=== PATIENT | female | born 1940 | race Caucasian/White ===

== ENCOUNTER → 2018-05-15 08:21 | Outpatient (CLI) | payer MEDICARE, OTHER, SELFPAY ==
--- NOTE | 2018-05-15 08:26 | DI.MG.S_ITS ---
BILATERAL DIGITAL SCREENING MAMMOGRAM 3D/2D WITH CAD: 05/15/2018 CLINICAL: Routine screening. Family history of breast cancer. Comparison is made to exams dated: 12/31/2016 mammogram, 12/21/2015 mammogram, and 12/19/2014 mammogram - [facility]. The tissue of both breasts is heterogeneously dense. This may lower the sensitivity of mammography. Current study was also evaluated with a Computer Aided Detection (CAD) system. No significant masses, calcifications, or other findings are seen in either breast. There has been no significant interval change. IMPRESSION: NEGATIVE There is no mammographic evidence of malignancy. A 1 year screening mammogram is recommended. This exam was interpreted at Station ID: [id number]. NOTE: For mammograms, a report in lay terms will be sent to the patient. Approximately 15% of breast malignancies will not be visualized mammographically. In the management of a palpable breast mass, a negative mammogram must not discourage biopsy of a clinically suspicious lesion. Electronically Signed By: Pedro richards/linda:05/17/2018 09:15:07 letter sent: Normal Exam ACR BI-RADS Category 1: Negative 3341F
== END ==
PROVIDERS: PCP Family Medicine; Visit Provider Family Medicine
DX: Z12.31 Encounter for screening mammogram for malignant neoplasm of breast (principal); Z80.3 Family history of malignant neoplasm of breast
CPT/HCPCS: 77063; 77067

== ENCOUNTER → 2018-05-25 13:41 | Outpatient (CLI) | payer MEDICARE, OTHER, SELFPAY | PROVIDERS: PCP Family Medicine; Visit Provider Family Medicine | DX: M85.88 Other specified disorders of bone density and structure, other site (principal); Z78.0 Asymptomatic menopausal state | CPT/HCPCS: 77080 ==

== ENCOUNTER → 2018-06-16 10:53 | Outpatient (CLI) | payer MEDICARE, OTHER, SELFPAY ==
[2018-06-16 12:10] LABS: Calcium 9.2 mg/dL (8.4-10.2)
[2018-06-16 12:54] LABS: Vitamin D 25 Hydroxy (D3) 12.9 ng/mL (30.0-100.0)
== END ==
PROVIDERS: PCP Family Medicine; Visit Provider Family Medicine
DX: M85.80 Other specified disorders of bone density and structure, unspecified site (principal)
CPT/HCPCS: 36415; 82306; 82310

== ENCOUNTER 2018-08-27 07:04 | Day surgery (SDC) | payer MEDICARE, OTHER, SELFPAY ==
[2018-08-27] VITALS (8 sets, daily range): BP systolic 108–133; BP diastolic 57–73; PULSE 57–72; RESP 12–17; TEMP 36.2–36.4; O2SAT 95–100; BMI 23.9
--- NOTE | 2018-08-27 | PATH_ITS ---
[facility] Accession Number: [id number] . 01 Material submitted: . PART A: COLON POLYP BIOPSY AT 20CM PART B: CECAL POLYP BIOPSY X4 . 02 Diagnosis: A. Colon, Biopsy at 20 cm Polyp, Biopsy: Hyperplastic polyp. . B. Cecum, Polyp x4, Biopsy: Tubular adenoma in five of six fragments. MRV/08/30/2018 . 02 Electronically signed: . Lakshmi Peñaloza MD, Pathologist NPI- [id number] . 01 Gross description: . Part A: COLON POLYP BIOPSY AT 20CM: Received in formalin are 2 fragment(s) of degroot, soft tissue measuring 0.2 x 0.2 x 0.2 cm to 0.4 x 0.2 x 0.2 cm which is entirely submitted and submitted entirely in 1 cassette(s) Part B: CECAL POLYP BIOPSY X4: Received in formalin are multiple fragment(s) of degroot, soft tissue measuring 0.1 x 0.1 x 0.1 cm to 0.3 x 0.2 x 0.2 cm which is entirely submitted and submitted entirely in 1 cassette(s) /DMC /DMC . 02 Pathologist provided ICD-10: D12.0 . 02 CPT . 670866, 456703 Performed at: 01 [facility] [address], [place], [place] [id number] MD Pedro Brito MD Phone: [phone] Performed at: 02 [facility] [address] , [place], [place] [id number] MD Lakshmi Peñaloza MD Phone: [phone]
[2018-08-27] MEDS: SODIUM CHLORIDE 0.9% 1,000 ML 100 ML IV (08:23)
--- NOTE | 2018-08-27 09:29 | PM.HP.1 ---
History of Present Illness Date Patient Seen: 08/27/18 Time Patient Seen: 09:30 Chief complaint: colonoscopy 70120 Narrative: The patient is a woman here for screening colonoscopy. Her son had colon cancer. Her last colonoscopy was about 5 years ago. Patient History Medical History Rosacea (Chronic ~1999) Asthma (Chronic ~1944) Hypertension (Chronic ~2001) Seasonal allergies (Chronic ~1944) Surgical History Anesthesia (Resolved) History of section (Resolved ~1960) History of section (Resolved ~1965) Family History Father No problems noted. Mother No problems noted. Grandfather No problems noted. Grandmother No problems noted. Social History marital status: number of children: 2 household members: spouse lives independently: Yes caregiver/support person: No housing: house Smoking Status: Never smoker second hand exposure: No alcohol intake: current substance use type: does not use Family & Social History Family History Father No problems noted. Mother No problems noted. Grandfather No problems noted. Grandmother No problems noted. Social History: household members spouse lives independently Yes caregiver/support person No Tobacco & Substance use: Smoking Status Never smoker alcohol intake current Meds Home Medications Medication Instructions Recorded Confirmed Type albuterol sulfate HFA 90 1 puff INHALATION Q6H PRN 01/22/18 08/27/18 History mcg/actuation aerosol inhaler amlodipine 10 mg tablet 10 mg PO DAILY 01/22/18 08/27/18 History aspirin 81 mg tablet,delayed 81 mg PO DAILY 01/22/18 08/27/18 History release atenolol 50 mg tablet 50 mg PO DAILY 01/22/18 08/27/18 History atorvastatin 10 mg tablet 10 mg PO DAILY 01/22/18 08/27/18 History azelaic acid 15 % topical gel 1 applictn TOP BID 01/22/18 08/27/18 History epinephrine 0.15 mg/0.15 mL SUBCUT each 01/22/18 05/14/18 History auto-injector (for 33 to 66 lb patients) hydrochlorothiazide 25 mg tablet 25 mg PO DAILY 01/22/18 08/27/18 History lisinopril 40 mg tablet 40 mg PO DAILY 01/22/18 08/27/18 History cholecalciferol (vitamin D3) 1,000 unit PO DAILY 08/27/18 08/27/18 History [Vitamin D3] Allergies Allergy/AdvReac Type Severity Reaction Status Date / Time bee venom protein (honey bee) Allergy Verified 08/27/18 08:00 hornet venom Allergy Verified 08/27/18 08:00 shellfish derived Allergy Verified 08/27/18 08:00 Review of Systems Review of Systems All systems reviewed & are unremarkable except as noted in HPI and below Cardiovascular Comments: Hypertension Respiratory Comments: Asthma. Uses inhalers. Exam Vital Signs (past 8 hours): - 08/27/18 08:06 Temperature 97.2 F L Pulse Rate 72 Respiratory Rate 15 Blood Pressure 133/64 Pulse Oximetry 99 Oxygen Delivery Method Room Air Narrative Exam Narrative: Operative no apparent distress. Lungs are clear to auscultation rales or rhonchi. Heart regular rate and rhythm no murmur gallop. Abdomen is mildly protuberant soft nontender without mass. Patient alert and oriented x3. Assessment & Plan Assessment & Plan narrative: Patient here for screening colonoscopy. I have discussed the procedure and the rationale with the patient including risks of bleeding, perforation which would necessitate a major operation, failure to find remove all lesions and the potential to tattoo. They appeared to understand and wished to proceed.
--- NOTE | 2018-08-27 09:33 | P.OP.PRE_ITS ---
Pre-operative Note Interval Note History & Physical reviewed/Exam performed by Physician: Yes Changes to H&P: No H&P completed within 30 days and has changed as indicated here:: Will give beta- ulisses if indicated. ASA Class (for procedural sedation): II
[2018-08-27] MEDS: fentaNYL 250 MCG/5 ML INJ IV (09:39)
[2018-08-27] MEDS: MIDAZOLAM 5 MG/5 ML VIAL IV (09:39)
--- NOTE | 2018-08-27 10:10 | PM.OP.ENDO ---
Operative Date/Time/Diagnoses Date of procedure: 08/27/18 Time of procedure: 10:10 Pre-op diagnosis: Screening due to family history. Last exam about 5 years ago Post-op diagnosis: same (Amos diverticulosis. Multiple small polyps) Procedure & Clinicians Study performed: Colonoscopy with cold biopsy Same procedure as scheduled: Yes Indications: Screening due to family history Surgeon: Terence Martinez Procedure Notes SCOAP/Timeout: Performed Procedure in detail: The patient was placed in the left lateral decubitus position and underwent IV sedation directed by the surgeon consisting of fentanyl and Versed. Digital exam was unremarkable. The scope was inserted and advanced through the rectum into the sigmoid, descending, transverse, and ascending colon. Two small polyps were removed at 20 cm from the anal verge on the way in. Diverticulosis was noted throughout these areas and was also noted in the cecum. The cecum was reached by applying pressure to the abdominal wall.. The cecum was reached identified by the ileocecal valve and the appendiceal opening. There was a polyp within the cecum which was biopsied and removed. Three additional polyps were identified in the ascending colon which were biopsied and removed. All were small under cm The scope was gradually brought out. The scope ultimately was retroflexed in the rectum. The appearance was remarkable for internal hemorrhoids without ulceration.. The scope was removed and the patient tolerated the procedure well. Prep was good. Scope withdrawal time: 14 min Sedation minutes: 33 Findings: diverticulosis (Throughout the colon), internal hemorrhoids and polyp (Multiple) Specimen(s): other (Polyps) Complications: none Recommendations: Colonscopy in 5 years Follow up: as needed Disposition: PACU
== END 2018-08-27 11:20 | disposition home or self-care (01) ==
PROVIDERS: PCP Family Medicine; Visit Provider Specialist
PROC: 0DJD8ZZ Inspection of Lower Intestinal Tract, Via Natural or Artificial Opening Endoscopic (ICD-10-PCS; CPT 45378; principal; 2018-08-27 08:45)
DX: Z12.11 Encounter for screening for malignant neoplasm of colon (principal); Z80.0 Family history of malignant neoplasm of digestive organs; I10 Essential (primary) hypertension; D12.0 Benign neoplasm of cecum; K57.30 Diverticulosis of large intestine without perforation or abscess without bleeding; K64.8 Other hemorrhoids
CPT/HCPCS: 45380; 88305; 99152; 99153; J2250; J3010

== ENCOUNTER → 2018-09-14 08:30 | Outpatient (CLI) | payer MEDICARE, OTHER, SELFPAY ==
[2018-09-14 12:37] LABS: Vitamin D 25 Hydroxy (D3) 27.1 ng/mL (30.0-100.0)
== END ==
PROVIDERS: PCP Family Medicine; Visit Provider Family Medicine
DX: E55.9 Vitamin D deficiency, unspecified (principal); R89.9 Unspecified abnormal finding in specimens from other organs, systems and tissues
CPT/HCPCS: 36415; 82306

== ENCOUNTER → 2019-03-16 06:57 | Outpatient (CLI) | payer MEDICARE, OTHER, SELFPAY ==
[2019-03-16 08:49] LABS: Vitamin D 25 Hydroxy (D3) 32.9 ng/mL (30.0-100.0)
== END ==
PROVIDERS: PCP Family Medicine; Visit Provider Family Medicine
DX: E55.9 Vitamin D deficiency, unspecified (principal); M85.80 Other specified disorders of bone density and structure, unspecified site
CPT/HCPCS: 36415; 82306

== ENCOUNTER → 2019-07-02 10:36 | Outpatient (CLI) | payer MEDICARE, OTHER, SELFPAY ==
--- NOTE | 2019-07-02 10:38 | DI.MG.S_ITS ---
BILATERAL DIGITAL SCREENING MAMMOGRAM 3D/2D WITH CAD: 07/02/2019 CLINICAL: Routine screening. Family history of breast cancer. Comparison is made to exams dated: 05/15/2018 mammogram - [facility], 12/31/2016 mammogram, and 12/21/2015 mammogram - [facility]. The tissue of both breasts is heterogeneously dense. This may lower the sensitivity of mammography. Current study was also evaluated with a Computer Aided Detection (CAD) system. No significant masses, calcifications, or other findings are seen in either breast. There has been no significant interval change. IMPRESSION: NEGATIVE There is no mammographic evidence of malignancy. A 1 year screening mammogram is recommended. This exam was interpreted at Station ID: [id number]. NOTE: For mammograms, a report in lay terms will be sent to the patient. Approximately 15% of breast malignancies will not be visualized mammographically. In the management of a palpable breast mass, a negative mammogram must not discourage biopsy of a clinically suspicious lesion. Electronically Signed By: Pedro richards/linda:07/05/2019 14:55:59 letter sent: Normal Exam ACR BI-RADS Category 1: Negative 3341F
== END ==
PROVIDERS: PCP Family Medicine; Visit Provider Family Medicine
DX: Z12.31 Encounter for screening mammogram for malignant neoplasm of breast (principal); Z80.3 Family history of malignant neoplasm of breast
CPT/HCPCS: 77063; 77067

== ENCOUNTER → 2020-08-29 11:44 | Outpatient (CLI) | payer MEDICARE, OTHER, SELFPAY | PROVIDERS: PCP Family Medicine; Referring Provider Family Medicine; Visit Provider Family Medicine | DX: Z12.31 Encounter for screening mammogram for malignant neoplasm of breast (principal); Z53.8 Procedure and treatment not carried out for other reasons ==

== ENCOUNTER → 2020-10-10 08:04 | Outpatient (CLI) | payer MEDICARE, OTHER, SELFPAY ==
--- NOTE | 2020-10-10 | DI.MG.S_ITS ---
BILATERAL DIGITAL SCREENING MAMMOGRAM 3D/2D WITH CAD: 10/10/2020 CLINICAL: Routine screening. Family history of breast cancer. Comparison is made to exams dated: 07/02/2019 mammogram, 05/15/2018 mammogram - [facility], and 12/31/2016 mammogram - [facility]. The tissue of both breasts is heterogeneously dense. This may lower the sensitivity of mammography. Current study was also evaluated with a Computer Aided Detection (CAD) system. No significant masses, calcifications, or other findings are seen in either breast. There has been no significant interval change. IMPRESSION: NEGATIVE There is no mammographic evidence of malignancy. A 1 year screening mammogram is recommended. This exam was interpreted at Station ID: [id number]. NOTE: For mammograms, a report in lay terms will be sent to the patient. Approximately 15% of breast malignancies will not be visualized mammographically. In the management of a palpable breast mass, a negative mammogram must not discourage biopsy of a clinically suspicious lesion. Electronically Signed By: Cody arguello/linda:10/11/2020 07:54:54 letter sent: Normal Exam ACR BI-RADS Category 1: Negative 3341F
== END ==
PROVIDERS: PCP Family Medicine; Referring Provider Family Medicine; Visit Provider Family Medicine
DX: Z12.31 Encounter for screening mammogram for malignant neoplasm of breast (principal); Z80.3 Family history of malignant neoplasm of breast
CPT/HCPCS: 77063; 77067

== ENCOUNTER → 2021-02-21 12:31 | Outpatient (CLI) | payer MEDICARE, OTHER, SELFPAY | PROVIDERS: PCP Family Medicine; Visit Provider Nurse Practitioner | DX: L72.9 Follicular cyst of the skin and subcutaneous tissue, unspecified (principal); L08.9 Local infection of the skin and subcutaneous tissue, unspecified | CPT/HCPCS: 87070; 87077; 87186; 87205 ==

== ENCOUNTER → 2021-06-13 11:46 | Outpatient (CLI) | payer MEDICARE, OTHER, SELFPAY ==
[2021-06-13 13:05] LABS: COVID19 -Nasal RAPID Negative (Negative)
== END ==
PROVIDERS: PCP Family Medicine; Visit Provider Nurse Practitioner Family
DX: Z20.822 Contact with and (suspected) exposure to COVID-19 (principal)
CPT/HCPCS: 87635

== ENCOUNTER 2021-06-16 20:13 | Inpatient (IN) | payer MEDICARE, OTHER, SELFPAY ==
[2021-06-16] VITALS (9 sets, daily range): BP systolic 143–160; BP diastolic 69–73; PULSE 80–94; RESP 22; TEMP 37.8; O2SAT 83–97
--- NOTE | 2021-06-16 20:26 | DI.RAD.S_ITS ---
PROCEDURE: XR CHEST 2V INDICATIONS: shortness of breath TECHNIQUE: 2 views of the chest were acquired. COMPARISON: None. FINDINGS: Surgical changes and devices: None. Lungs and pleura: Diffuse interstitial prominence. Patchy/nodular opacities of the right upper lung zone. No pleural effusions or pneumothorax. Mediastinum: Mediastinal contours are normal. Heart size is normal. Bones and chest wall: No suspicious bony abnormalities. Soft tissues appear unremarkable. IMPRESSION: Diffuse interstitial prominence with patchy/nodular right upper lung zone opacities possibly representing an infectious process/pneumonia. Recommend follow up chest radiograph 4-6 weeks after treatment to document resolution of findings and/or return to baseline examination. Dictated by: Cody Bryant M.D. on 06/16/2021 at 20:54 Approved by: Cody Bryant M.D. on 06/16/2021 at 20:56
[2021-06-16 21:00] LABS: Add Manual Diff / Slide Review NO; Basophils Absolute Auto 100 /uL (0-100); Basophils Percent Auto 0.7 % (0-2); Eosinophils Absolute Auto 100 /uL (0-450); Eosinophils Percent Auto 0.9 % (2-4); Hematocrit 39.4 % (36-46); Hemoglobin 13.3 g/dL (12.0-16.0); Lymphocytes Absolute Auto 1000 /uL (1100-4500); Lymphocytes Percent Auto 7.1 % (25-40); Mean Corpuscular HGB Conc 33.7 % (30-36); Mean Corpuscular Hemoglobin 29.9 PG (26-34); Mean Corpuscular Volume 88.9 fL (80-100); Monocytes Absolute Auto 1100 /uL (0-900); Neutrophils Absolute Auto 11100 /uL (1500-7000); Neutrophils Percent Auto 83.3 % (50-75); Platelet Count 367 X10^3/uL (150-400); Red Blood Cell Count 4.44 X10^6/uL (4.0-5.2); White Blood Cell Count 13.4 X10^3/uL (4.5-11.0)
[2021-06-16 21:10] LABS: Alanine Aminotransferase 20 IU/L (<35); Albumin 4.8 g/dL (3.5-5.0); Albumin Globulin Ratio 1.3 (1.0-2.8); Alkaline Phosphatase 85 U/L (38-126); Aspartate Aminotransferase 29 IU/L (14-36); Bilirubin Total 0.5 mg/dL (0.2-1.3); Blood Urea Nitrogen 10 mg/dL (7-17); Calcium 10.4 mg/dL (8.4-10.2); Carbon Dioxide 30 mmol/L (22-32); Chloride 95 mmol/L (98-107); Estimated Glomerular Filt Rate > 60.0 mL/min (>60); Globulin 3.6 g/dL (1.7-4.1); Glucose 144 mg/dL (80-110); HEMOLYSIS < 15 (0-50); Lactate (Lactic Acid) 0.9 mmol/L (0.7-2.1); Potassium 3.3 mmol/L (3.4-5.1); Sodium 132 mmol/L (137-145); Total Protein 8.4 g/dL (6.3-8.2)
--- NOTE | 2021-06-16 21:28 | ED_ITS ---
HPI - General Adult General Chief complaint: Shortness of Breath/Dyspnea Stated complaint: SOB X7 DAY Time Seen by Provider: 06/16/21 21:22 Source: patient Mode of arrival: Ambulatory Limitations: no limitations History of Present Illness HPI narrative: Patient is a 80-year-old female. History of asthma and hypertension and hyperlipidemia who is here for evaluation of shortness of breath on exertion for the past week. Has had a cough. Has been using her inhalers. No specific fevers. His vaccinated against COVID and has had her booster shot. Does not have a productive cough but does have a wet cough. No recent travel. No chest pain. Has not tried anything for the symptoms prior to arrival. Related Data Home Medications Medication Instructions Recorded Confirmed albuterol sulfate 90 mcg/actuation 1 puff INHALATION Q6H PRN 01/22/18 06/13/21 aerosol inhaler (Ventolin HFA) amlodipine 10 mg tablet 10 mg PO DAILY 01/22/18 06/13/21 aspirin 81 mg tablet,delayed 81 mg PO DAILY 01/22/18 06/13/21 release (Adult Low Dose Aspirin) atenolol 50 mg tablet 50 mg PO DAILY 01/22/18 06/13/21 atorvastatin 10 mg tablet 10 mg PO DAILY 01/22/18 06/13/21 azelaic acid 15 % topical gel 1 applictn TOP BID 01/22/18 06/13/21 epinephrine 0.15 mg/0.15 mL SUBCUT each 01/22/18 06/13/21 auto-injector (for 33 to 66 lb patients) hydrochlorothiazide 25 mg tablet 25 mg PO DAILY 01/22/18 06/13/21 lisinopril 40 mg tablet 40 mg PO DAILY 01/22/18 06/13/21 cholecalciferol (vitamin D3) 25 1,000 unit PO DAILY 08/27/18 06/13/21 mcg (1,000 unit) capsule (Vitamin D3) Allergies Allergy/AdvReac Type Severity Reaction Status Date / Time bee venom protein (honey bee) Allergy Verified 06/13/21 12:02 hornet venom Allergy Verified 06/13/21 12:02 shellfish derived Allergy Verified 06/13/21 12:02 Review of Systems Constitutional Constitutional: Denies fever(s) and Denies headache(s) ENT Ears, Nose, Mouth, and Throat: Denies headache(s) Cardiovascular Cardiovascular: Reports as per HPI and Reports system reviewed and no additional complaints, except as documented Respiratory Respiratory: Reports as per HPI and Reports system reviewed and no additional complaints, except as documented Gastrointestinal Gastrointestinal: Reports as per HPI and Reports system reviewed and no additional complaints, except as documented Integumentary/Breasts Skin/Breast: Reports system reviewed and no additional complaints, except as documented Neurologic Neurologic: Denies headache(s) Hematologic/Lymphatic On Anticoagulants: No Allergic/Immunologic Allergic/Immunologic: Reports system reviewed and no additional complaints, except as documented Patient History Medical History Asthma (~194) Hypertension (~2001) Rosacea (~1999) Seasonal allergies (~194) Surgical History Anesthesia History of section (~1960) History of section (~1965) Family History Father No problems noted. Mother No problems noted. Grandfather No problems noted. Grandmother No problems noted. Social History marital status: number of children: 2 household members: spouse lives independently: Yes caregiver/support person: No housing: house Smoking Status: Never smoker second hand exposure: No alcohol intake: current substance use type: does not use Smoking Status: Never smoker Exam Initial Vital Signs Initial Vital Signs: Vital Signs Temperature 100.1 F H 06/16/21 20:23 Pulse Rate 94 H 06/16/21 20:23 Respiratory Rate 22 06/16/21 20:23 Blood Pressure 160/73 H 06/16/21 20:23 Pulse Oximetry 90 L 06/16/21 20:23 Const General: cooperative, comfortable and well developed Nutritional Appearance: average body habitus HENMT Head: normal to inspection and normocephalic Resp Effort & Inspection: normal respiratory effort, no respiratory distress, no retractions and not tachypneic Auscultation: clear to auscultation bilaterally Cardio Rate: regular rate Rhythm: regular rhythm GI Inspection: normal to inspection Skin General: no rashes or lesions noted Neuro General: patient alert, patient awake, patient oriented x3 and moves all extremities Cognition: normal cognition Extrem General: normal to inspection and capillary refill normal Psych Appearance: grossly normal and well kempt Scores GCS Ingraham coma scale eye opening: Spontaneous Ingraham coma scale verbal response: Orientated Aline coma scale motor response: Obey commands Ingraham coma scale total score: 15 Course Orders Ordered: ED Orders 06/16/21 20:26 XR chest 2V Stat EKG-12 Lead Stat Measure peak expiratory flow ONCE RT Consult Eval and Treat Now 06/16/21 20:35 Complete Blood Count AUTO DIFF Stat Comprehensive Metabolic Panel Stat Lactate (Lactic Acid) Stat 06/16/21 21:00 COVID19 -Nasal swab/Pre-Proc Stat 06/16/21 21:43 Blood Culture Stat Lactate (Lactic Acid) Stat Procalcitonin Stat 06/16/21 22:46 Consult to Physician Urgent Acetaminophen (Acetaminophen 325 Mg Tablet) 650 mg PO Q6HR PRN PRN Reason: Fever/Mild Pain (1-3) Albuterol (Albuterol 2.5 Mg/3 Ml Neb (Adult)) 2.5 mg INH [id number] PRN PRN Reason: Shortness Of Breath Ondansetron HCl (Ondansetron 4 Mg/2 Ml Inj) 4 mg IV Q4HR PRN PRN Reason: Nausea And Vomiting Discontinued Medications Acetaminophen (Acetaminophen 325 Mg Tablet) 650 mg PO NOW ONE Stop: 06/16/21 22:24 Last Admin: 06/16/21 22:27 Dose: 650 mg Documented by: SUZETTE Albuterol/Ipratropium (Albuterol/Ipratropium 3 Ml Ampul) 3 ml INH NOW ONE Stop: 06/16/21 22:46 Last Admin: 06/16/21 23:08 Dose: 3 ml Documented by: GREG Azithromycin 500 mg/ Dextrose 250 mls @ 250 mls/hr IV NOW ONE Stop: 06/16/21 21:30 Last Infusion: 06/16/21 23:25 Dose: 0 mls/hr Documented by: Admin: 06/16/21 21:57 Dose: 250 mls/hr Documented by: HAIDER Ceftriaxone Sodium 1,000 mg/ (Sodium Chloride) 100 mls @ 200 mls/hr IV NOW ONE Stop: 06/16/21 22:42 Last Admin: 06/16/21 23:25 Dose: 200 mls/hr Documented by: HAIDER Methylprednisolone (Methylprednisolone 125 Mg/2 Ml Vial) 125 mg IV NOW ONE Stop: 06/16/21 22:44 Last Admin: 06/16/21 22:54 Dose: 125 mg Documented by: HAIDER Vital Signs Vital signs: Vital Signs - 8 hr 06/16/21 20:23 06/16/21 21:25 06/16/21 21:30 Temperature 100.1 F H Pulse Rate 94 H 90 88 Respiratory Rate 22 Blood Pressure 160/73 H Pulse Oximetry 90 L 92 92 06/16/21 22:00 06/16/21 22:30 06/16/21 22:40 Temperature Pulse Rate 85 87 Respiratory Rate Blood Pressure 143/69 H Pulse Oximetry 93 91 83 L 06/16/21 22:56 Temperature Pulse Rate Respiratory Rate Blood Pressure Pulse Oximetry 92 Medical Decision Making Lab Data Lab results reviewed: Yes I reviewed the patient's lab results. Result diagrams: 06/16/21 20:35 06/16/21 20:35 Labs: Lab Results 06/16/21 06/16/21 06/16/21 Range/Units 20:35 20:35 20:35 WBC 13.4 H (4.5-11.0) X10^3/uL RBC 4.44 (4.0-5.2) X10^6/uL Hgb 13.3 (12.0-16.0) g/dL Hct 39.4 (36-46) % MCV 88.9 (80-100) fL MCH 29.9 (26-34) PG MCHC 33.7 (30-36) % RDW 14.0 (11.6-14.8) % Plt Count 367 (150-400) X10^3/uL Neut % (Auto) 83.3 H (50-75) % Lymph % (Auto) 7.1 L (25-40) % [place]ingham % (Auto) 8.0 (3-14) % Eos % (Auto) 0.9 L (2-4) % Baso % (Auto) 0.7 (0-2) % Neut # (Auto) 42604 H (3384-3133) /uL Lymph # (Auto) 1000 L (3785-6455) /uL [place]ingham # (Auto) 1100 H (0-900) /uL Eos # (Auto) 100 (0-450) /uL Baso # (Auto) 100 (0-100) /uL Sodium 132 L (137-145) mmol/L Potassium 3.3 L (3.4-5.1) mmol/L Chloride 95 L (98-107) mmol/L Carbon Dioxide 30 (22-32) mmol/L BUN 10 (7-17) mg/dL Creatinine 0.40 L (0.52-1.04) mg/dL Estimated GFR > 60.0 (>60) mL/min BUN/Creatinine Ratio 25.0 H (6-22) Glucose 144 H (80-110) mg/dL Lactate 0.9 (0.7-2.1) mmol/L Calcium 10.4 H (8.4-10.2) mg/dL Total Bilirubin 0.5 (0.2-1.3) mg/dL AST 29 (14-36) IU/L ALT 20 (<35) IU/L Alkaline Phosphatase 85 (38-126) U/L Total Protein 8.4 H (6.3-8.2) g/dL Albumin 4.8 (3.5-5.0) g/dL Globulin 3.6 (1.7-4.1) g/dL Albumin/Globulin Ratio 1.3 (1.0-2.8) Procalcitonin (<0.5) ng/mL SARS-CoV-2 (PCR) (Negative) 06/16/21 06/16/21 06/16/21 Range/Units 21:00 21:43 21:43 WBC (4.5-11.0) X10^3/uL RBC (4.0-5.2) X10^6/uL Hgb (12.0-16.0) g/dL Hct (36-46) % MCV (80-100) fL MCH (26-34) PG MCHC (30-36) % RDW (11.6-14.8) % Plt Count (150-400) X10^3/uL Neut % (Auto) (50-75) % Lymph % (Auto) (25-40) % Bingham % (Auto) (3-14) % Eos % (Auto) (2-4) % Baso % (Auto) (0-2) % Neut # (Auto) (1156-8047) /uL Lymph # (Auto) (0787-3061) /uL Bingham # (Auto) (0-900) /uL Eos # (Auto) (0-450) /uL Baso # (Auto) (0-100) /uL Sodium (137-145) mmol/L Potassium (3.4-5.1) mmol/L Chloride (98-107) mmol/L Carbon Dioxide (22-32) mmol/L BUN (7-17) mg/dL Creatinine (0.52-1.04) mg/dL Estimated GFR (>60) mL/min BUN/Creatinine Ratio (6-22) Glucose (80-110) mg/dL Lactate 0.6 L (0.7-2.1) mmol/L Calcium (8.4-10.2) mg/dL Total Bilirubin (0.2-1.3) mg/dL AST (14-36) IU/L ALT (<35) IU/L Alkaline Phosphatase (38-126) U/L Total Protein (6.3-8.2) g/dL Albumin (3.5-5.0) g/dL Globulin (1.7-4.1) g/dL Albumin/Globulin Ratio (1.0-2.8) Procalcitonin 0.04 (<0.5) ng/mL SARS-CoV-2 (PCR) Negative (Negative) Imaging Data Chest x-ray: Radiologist's Impression: [address] [address] XRay Report Signed Patient: Katie Harmon MR#: [id number] : 1940 Acct:[id number] Age/Sex: 80 / F Date of Service: 06/16/21 Loc: ED Accession Number: [id number] ?? Procedure: XR chest 2V Ordering Provider: Ben Alcantara D.O. PROCEDURE:? XR CHEST 2V ? INDICATIONS:? shortness of breath ? TECHNIQUE:? 2 views of the chest were acquired.? ? COMPARISON:? None. ? FINDINGS:? ? Surgical changes and devices:? None.? ? Lungs and pleura:? Diffuse interstitial prominence.? Patchy/nodular opacities of the right upper lung zone.? No pleural effusions or pneumothorax.? ? Mediastinum:? Mediastinal contours are normal.? Heart size is normal.? ? Bones and chest wall:? No suspicious bony abnormalities.? Soft tissues appear unremarkable.? ? IMPRESSION:? Diffuse interstitial prominence with patchy/nodular right upper lung zone opacities possibly representing an infectious process/pneumonia. Recommend follow up chest radiograph 4-6 weeks after treatment to document resolution of findings and/or return to baseline examination. ? ? Dictated by: Cody Bryant M.D. on 06/16/2021 at 20:54 ? ? Approved by: Cody Bryant M.D. on 06/16/2021 at 20:56? ECG Data Attestation: I personally reviewed and interpreted this ECG as follows: Interpretation: Sinus rhythm Ventricular rate 80 Normal axis Normal QRS QTC [address] T wave changes MDM Narrative Medical decision making narrative: Patient does have a fever. Does have a cough but clear lung exam. Chest x-ray is concerning for pneumonia. Would classify as a community-acquired pneumonia. But oxygen saturations 88-92% on room air while sitting in bed. She did become hypoxic to the low 80s and very short of breath with walking to the bathroom. Antibiotics administered. No chest pain. EKG is unremarkable. Discussed the case with Dr. Nickerson on-call for the patient's primary provider. She asked that we give the patient Rocephin in addition to the azithromycin. Blood cultures were obtained. Discussed the need for admission with the patient. She expressed understanding agreement. Discharge Plan Departure Patient Disposition: Admitted As Inpatient Clinical Impression: Pneumonia, Asthma, Hypoxia
[2021-06-16 21:39] LABS: COVID19 -Nasal RAPID Negative (Negative)
[2021-06-16] MEDS: AZITHROMYCIN 500 MG in DEXTROSE 5% IN WATER 250 ML IV (21:57)
[2021-06-16 22:06] LABS: Lactate (Lactic Acid) 0.6 mmol/L (0.7-2.1)
[2021-06-16 22:23] LABS: Procalcitonin 0.04 ng/mL (<0.5)
[2021-06-16] MEDS: ACETAMINOPHEN 325 MG TABLET 650 MG PO (22:27)
[2021-06-16] MEDS: methylPREDNISolone 125 MG/2 ML VIAL IV (22:54)
--- NOTE | 2021-06-16 22:55 | PC.NURSE ---
Patient ambulated to restoom, decrease sats into low 80's and increase work of breathing. Dr Alcantara notified. placed patient on 2LNC, notified RT of eval and treat. Patient oxygen levels increased quickly with slow deep breaths and 2LNC.
[2021-06-16] MEDS: ALBUTEROL/IPRATROPIUM 3 ML AMPUL INH (23:08)
[2021-06-16] MEDS: cefTRIAXone 1,000 MG in SODIUM CHLORIDE 0.9% 100 ML 200 ML IV (23:25)
[2021-06-17] VITALS (29 sets, daily range): BP systolic 118–146; BP diastolic 56–71; PULSE 63–87; RESP 16–18; TEMP 36.3–37.3; O2SAT 89–99; BMI 24.0
--- NOTE | 2021-06-17 02:37 | PC.NURSE ---
Patient accidentally removed oxygen. Placed back on and oxygen increased immediately to 92%
--- NOTE | 2021-06-17 06:50 | PM.HP.1 ---
History of Present Illness History of Present Illness Date Patient Seen: 06/17/21 Chief complaint: SOB X7 DAY Narrative: Pt is a 80yo woman with asthma and HTN who presented with SOB and cough. The pt reports that one week ago she developed a cough. This progressively worsened, and she began to feel very SOB with any movement. She has not had an asthma exacerbation in over 20 years, and so this took her by surprise. The cough is non-productive, but does sound wet. She was starting to feel more SOB when at rest in bed, and so decided to come to the ED for evaluation. She denies any chest pain other than from coughing. She denies any abdominal pain, nausea, vomiting. She was feeling well prior to one week ago. She has no known recent COVID contacts. She has no recent travel. She has received all her COVID vaccines. Patient History Medical History Asthma (~1945) Hypertension (~2001) Rosacea (~1999) Seasonal allergies (~194) Surgical History Anesthesia History of section (~1960) History of section (~1965) Family & Social History Family History Father No problems noted. Mother No problems noted. Grandfather No problems noted. Grandmother No problems noted. Social History: household members spouse lives independently Yes caregiver/support person No Tobacco & Substance use: Smoking Status Never smoker alcohol intake current Meds Home Medications and Allergies Home Medications Medication Instructions Recorded Confirmed Type albuterol sulfate 90 mcg/actuation 1 puff INHALATION Q6H PRN 01/22/18 06/13/21 History aerosol inhaler (Ventolin HFA) amlodipine 10 mg tablet 10 mg PO DAILY 01/22/18 06/13/21 History aspirin 81 mg tablet,delayed 81 mg PO DAILY 01/22/18 06/13/21 History release (Adult Low Dose Aspirin) atenolol 50 mg tablet 50 mg PO DAILY 01/22/18 06/13/21 History atorvastatin 10 mg tablet 10 mg PO DAILY 01/22/18 06/13/21 History azelaic acid 15 % topical gel 1 applictn TOP BID 01/22/18 06/13/21 History epinephrine 0.15 mg/0.15 mL SUBCUT each 01/22/18 06/13/21 History auto-injector (for 33 to 66 lb patients) hydrochlorothiazide 25 mg tablet 25 mg PO DAILY 01/22/18 06/13/21 History lisinopril 40 mg tablet 40 mg PO DAILY 01/22/18 06/13/21 History cholecalciferol (vitamin D3) 25 1,000 unit PO DAILY 08/27/18 06/13/21 History mcg (1,000 unit) capsule (Vitamin D3) Allergies Allergy/AdvReac Type Severity Reaction Status Date / Time bee venom protein (honey bee) Allergy Verified 06/13/21 12:02 hornet venom Allergy Verified 06/13/21 12:02 shellfish derived Allergy Verified 06/13/21 12:02 Exam Vital Signs (past 8 hours): - 06/16/21 22:56 06/16/21 23:00 06/16/21 23:30 Pulse Rate 80 82 Blood Pressure Pulse Oximetry 92 96 97 06/17/21 00:00 06/17/21 00:30 06/17/21 01:00 Pulse Rate 75 75 74 Blood Pressure Pulse Oximetry 97 94 95 06/17/21 01:30 06/17/21 02:00 06/17/21 02:30 Pulse Rate 72 70 70 Blood Pressure Pulse Oximetry 96 94 89 L 06/17/21 03:00 06/17/21 03:30 06/17/21 04:00 Pulse Rate 69 67 66 Blood Pressure Pulse Oximetry 97 97 93 06/17/21 04:30 06/17/21 05:00 06/17/21 05:30 Pulse Rate 63 71 78 Blood Pressure Pulse Oximetry 94 97 97 06/17/21 06:00 06/17/21 06:10 Pulse Rate 75 76 Blood Pressure 133/65 Pulse Oximetry 97 97 Oxygen Delivery Method Nasal Cannula Oxygen Flow Rate 2 Narrative Exam Narrative: GEN - alert, cooperative and no distress HEENT - normocephalic and atraumatic, sclera white, moist mucus membranes NECK - FROM, no adenopathy, no JVD HEART - RRR, S1, S2 normal, no S3 or S4, no murmurs LUNGS - symmetric chest rise, decreased air movement throughout, crackles right lung shafer, diffuse wheezing all lung shafer ABD - flat, nondistended, normal bowel sounds, soft, nontender and no hepatomegaly, splenomegaly or masses EXT - no cyanosis, clubbing or edema SKIN - no rashes or suspicious lesions NEURO - no gross deficits Objective Labs Result Diagrams: 06/16/21 20:35 06/16/21 20:35 Labs: Laboratory Results - last 24 hr 06/16/21 06/16/21 06/16/21 20:35 20:35 20:35 WBC 13.4 H RBC 4.44 Hgb 13.3 Hct 39.4 MCV 88.9 MCH 29.9 MCHC 33.7 RDW 14.0 Plt Count 367 Neut % (Auto) 83.3 H Lymph % (Auto) 7.1 L [place] % (Auto) 8.0 Eos % (Auto) 0.9 L Baso % (Auto) 0.7 Neut # (Auto) 62334 H Lymph # (Auto) 1000 L [place] # (Auto) 1100 H Eos # (Auto) 100 Baso # (Auto) 100 Sodium 132 L Potassium 3.3 L Chloride 95 L Carbon Dioxide 30 BUN 10 Creatinine 0.40 L Estimated GFR > 60.0 BUN/Creatinine Ratio 25.0 H Glucose 144 H Lactate 0.9 Calcium 10.4 H Total Bilirubin 0.5 AST 29 ALT 20 Alkaline Phosphatase 85 Total Protein 8.4 H Albumin 4.8 Globulin 3.6 Albumin/Globulin Ratio 1.3 Procalcitonin SARS-CoV-2 (PCR) 06/16/21 06/16/21 06/16/21 21:00 21:43 21:43 WBC RBC Hgb Hct MCV MCH MCHC RDW Plt Count Neut % (Auto) Lymph % (Auto) [place] % (Auto) Eos % (Auto) Baso % (Auto) Neut # (Auto) Lymph # (Auto) [place] # (Auto) Eos # (Auto) Baso # (Auto) Sodium Potassium Chloride Carbon Dioxide BUN Creatinine Estimated GFR BUN/Creatinine Ratio Glucose Lactate 0.6 L Calcium Total Bilirubin AST ALT Alkaline Phosphatase Total Protein Albumin Globulin Albumin/Globulin Ratio Procalcitonin 0.04 SARS-CoV-2 (PCR) Negative Assessment & Plan Assessment & Plan narrative: Pt is a 80yo woman with asthma and HTN who presented with SOB and cough. Pt with mild hypoxia at presentation, with acute respiratory failure. Exam and CXR consistent with community-acquired pneumonia, exam also with signs of asthma exacerbation. 1) Community-acquired pneumonia: Pt unable to produce sputum for culture. - Ceftriaxone IV daily - Azithromycin IV daily 2) Acute asthma exacerbation: s/p 125mg Methylprednisolone in the ED - Methylprednisolone 60mg IV daily - RT consulted - Duonebs PRN as per RT 3) Hyponatremia: Mild, likely due to HCTZ - Hold HCTZ - Repeat BMP in the AM 4) Hypokalemia: Mild - Oral replacement with potassium 5) HTN: - Continue home Amlodipine, Atenolol, Aspirin, Atorvastatin, Lisinopril - Hold home HCTZ as above Code: Full Diet: Regular DVT ppx: Lovenox Dispo: Pending stabilization of respiratory status. Anticipate potential discharge tomorrow. Time Spent With Patient Critical Care time: I spent a total of [] minutes of critical care time on this patient's care today; this time is exclusive of procedural time.
[2021-06-17] MEDS: ASPIRIN EC 81 MG TABLET PO (13:06)
[2021-06-17] MEDS: lisinopriL 20 MG TABLET 40 MG PO (13:06)
[2021-06-17] MEDS: atenoloL 50 MG TABLET PO (13:06)
[2021-06-17] MEDS: AMLODIPINE 5 MG TABLET 10 MG PO (13:06)
[2021-06-17] MEDS: CHOLECALCIFEROL (VITAMIN D3) 1,000 UNIT TABLET 1000 UNIT PO (13:06)
[2021-06-17] MEDS: hydroCHLOROthiazide 25 MG TABLET PO (13:06)
[2021-06-17] MEDS: ALBUTEROL/IPRATROPIUM 3 ML AMPUL INH (19:34)
[2021-06-17] MEDS: POTASSIUM CHLORIDE 10 MEQ TAB PO (19:44)
[2021-06-17] MEDS: AZITHROMYCIN 500 MG in DEXTROSE 5% IN WATER 250 ML IV (20:53)
[2021-06-17] MEDS: cefTRIAXone 1,000 MG in SODIUM CHLORIDE 0.9% 100 ML 200 ML IV (22:06)
[2021-06-17] MEDS: SODIUM CHLORIDE 0.9% 250 ML 21 ML IV ×2 (22:09→22:57)
[2021-06-18 04:30] VITALS: BP 133/68; PULSE 79; RESP 18; TEMP 36.8; O2SAT 93
[2021-06-18 06:39] LABS: Add Manual Diff / Slide Review NO; Basophils Absolute Auto 100 /uL (0-100); Basophils Percent Auto 0.4 % (0-2); Eosinophils Absolute Auto 0 /uL (0-450); Eosinophils Percent Auto 0.1 % (2-4); Hematocrit 34.9 % (36-46); Hemoglobin 11.8 g/dL (12.0-16.0); Lymphocytes Absolute Auto 1400 /uL (1100-4500); Lymphocytes Percent Auto 10.3 % (25-40); Mean Corpuscular HGB Conc 33.8 % (30-36); Mean Corpuscular Hemoglobin 30.2 PG (26-34); Mean Corpuscular Volume 89.3 fL (80-100); Monocytes Absolute Auto 1100 /uL (0-900); Monocytes Percent Auto 7.5 % (3-14); Neutrophils Absolute Auto 11500 /uL (1500-7000); Neutrophils Percent Auto 81.7 % (50-75); Platelet Count 355 X10^3/uL (150-400); Red Blood Cell Count 3.91 X10^6/uL (4.0-5.2); Red Cell Distribution Width 13.7 % (11.6-14.8); White Blood Cell Count 14.1 X10^3/uL (4.5-11.0)
[2021-06-18 06:47] LABS: Blood Urea Nitrogen 10 mg/dL (7-17); Calcium 9.7 mg/dL (8.4-10.2); Carbon Dioxide 31 mmol/L (22-32); Chloride 97 mmol/L (98-107); Estimated Glomerular Filt Rate > 60.0 mL/min (>60); Glucose 126 mg/dL (80-110); HEMOLYSIS < 15 (0-50); Potassium 3.2 mmol/L (3.4-5.1); Sodium 130 mmol/L (137-145)
[2021-06-18 07:46] VITALS: PULSE 77; RESP 16; O2SAT 92
[2021-06-18 08:27] LABS: Sodium Urine Random 47 mmol/L (30-90)
--- NOTE | 2021-06-18 08:55 | P.DS_ITS ---
History of Present Illness History of Present Illness Date Patient Seen: 06/18/21 Time Patient Seen: 07:50 Chief complaint: SOB X7 DAY Narrative: Pt is a 80yo woman with asthma and HTN who presented with SOB and cough. The pt reports that one week ago she developed a cough. This progressively worsened, and she began to feel very SOB with any movement. She has not had an asthma exacerbation in over 20 years, and so this took her by surprise. The cough is non-productive, but does sound wet. She was starting to feel more SOB when at rest in bed, and so decided to come to the ED for evaluation. She denies any chest pain other than from coughing. She denies any abdominal pain, nausea, vomiting. She was feeling well prior to one week ago. She has no known recent COVID contacts. She has no recent travel. She has received all her COVID vaccines. Discharge Providers Provider Date of admission: 06/17/21 03:20 Discharge Date: 06/18/21 Primary care physician: Minerva Hearn MD Consults: 06/16/21 22:46 Consult to Physician Urgent Comment: Consulting Provider: Devika Nickerson Reason for consultation: admission Has provider been notified: Yes Discharge provider: Minerva Hearn MD Summary Hospital Course Discharge Diagnosis: Community acquired pneumonia Asthma exacerbation Hyponatremia Hypokalemia Hypertension Hospital Course: The pt was admitted with pneumonia and asthma exacerbation. She was initially on 2L of oxygen, which was weaned relatively quickly. She received IV Ceftriaxone and IV Azithromycin for her pneumonia. She was treated with IV Methylprednisolone and duoneb treatments for her asthma. Her respiratory status significantly improved. She was feeling improved and ready for discharge, stable off oxygen, at the time of discharge. She will continue on a prednisone taper at home. The pt was also incidentally found to be hyponatremic and hypokalemic at admission. She received oral potassium supplementation. Her HCTZ was stopped. Urine sodium studies were sent, and were pending at the time of discharge. She will have a repeat BMP within a week, and continue to have f/u for these issues as an outpatient. Status at Discharge Cognitive/behavioral status at discharge: oriented Functional status at discharge: independent ambulation Overall status at discharge: patient is progressing back to baseline Exam Vital Signs (past 8 hours): - 06/18/21 04:30 06/18/21 07:46 Temperature 98.3 F Pulse Rate 79 77 Respiratory Rate 18 16 Blood Pressure 133/68 Pulse Oximetry 93 92 Oxygen Delivery Method Room Air Oxygen Flow Rate 0 Narrative Exam Narrative: Gen: NAD, sitting comfortably on bench, speaking easily in complete sentences CV: RRR, no murmurs Resp: improved air movement from yesterday, expiratory wheezing in all lung shafer, no significant crackles Abd: soft, nontender, nondistended Ext: no edema Objective Labs Result Diagrams: 06/18/21 06:16 06/18/21 06:16 Labs: Laboratory Results - last 24 hr 06/18/21 06/18/21 06/18/21 06:16 06:16 08:00 WBC 14.1 H RBC 3.91 L Hgb 11.8 L Hct 34.9 L MCV 89.3 MCH 30.2 MCHC 33.8 RDW 13.7 Plt Count 355 Neut % (Auto) 81.7 H Lymph % (Auto) 10.3 L [place] % (Auto) 7.5 Eos % (Auto) 0.1 L Baso % (Auto) 0.4 Neut # (Auto) 51261 H Lymph # (Auto) 1400 [place] # (Auto) 1100 H Eos # (Auto) 0 Baso # (Auto) 100 Sodium 130 L Potassium 3.2 L Chloride 97 L Carbon Dioxide 31 BUN 10 Creatinine 0.40 L Estimated GFR > 60.0 BUN/Creatinine Ratio 25.0 H Glucose 126 H Calcium 9.7 Ur Random Sodium 47 PFSH Medical History Asthma (~1945) Hypertension (~2001) Rosacea (~1999) Seasonal allergies (~1945) Surgical History Anesthesia History of section (~1960) History of section (~1965) Family History Father No problems noted. Mother No problems noted. Grandfather No problems noted. Grandmother No problems noted. Social History marital status: number of children: 2 household members: spouse lives independently: Yes caregiver/support person: No housing: house Smoking Status: Never smoker second hand exposure: No alcohol intake: current substance use type: does not use Discharge Plan Discharge Plan Patient Disposition: Home Provider Discharge Comment: Please stop taking your Hydrochlorothiazide. Please have your lab drawn before your appointment in 1 week to recheck your sodium level. Please take your albuterol inhaler at home every 4 hours for now, and if you wake at night coughing. You should take your antibiotics and steroids as prescribed. Discharge orders & Medications Prescriptions: New prednisone 20 mg tablet See Rx Instructions .ROUTE .COMPLEX Qty: 21 0RF Rx Instructions: Take 3 tabs for 4 days, then 2 tabs for 3 days, then 1 tab for 3 days then stop cefdinir 300 mg capsule 300 mg PO BID Qty: 14 0RF azithromycin 250 mg tablet 250 mg PO DAILY Qty: 3 0RF Rx Instructions: start on day 2 of therapy Continued atorvastatin 10 mg tablet 10 mg PO DAILY 0RF aspirin [Adult Low Dose Aspirin] 81 mg tablet,delayed release (DR/EC) 81 mg PO DAILY 0RF amlodipine 10 mg tablet 10 mg PO DAILY 0RF albuterol sulfate [Ventolin HFA] 90 mcg/actuation HFA aerosol inhaler 1 puff INHALATION Q6H PRN (Reason: asthma) 0RF lisinopril 40 mg tablet 40 mg PO DAILY 0RF atenolol 50 mg tablet 50 mg PO DAILY 0RF azelaic acid 15 % gel 1 applictn TOP BID 0RF epinephrine 0.15 mg/0.15 mL auto-injector SUBCUT 0RF cholecalciferol (vitamin D3) [Vitamin D3] 1,000 unit Capsule 1,000 unit PO DAILY 0RF Discontinued hydrochlorothiazide 25 mg tablet 25 mg PO DAILY 0RF Follow up/Referrals: Minerva Hearn MD [Primary Care Provider] - 06/26/21 12:15 pm (appt:06/26 @ 12:15 w/Dr Hearn ) Diet/Activity/Treatments Diet: Regular Skin/Wound/Dressing Care Report to your healthcare provider any signs of infection, such as:: chills, fever Visit Report/Discharge Packet Instructions: DI for Asthma -- Adult, DI for Pneumonia -- Adult, Prednisone Visit Report Forms: Patient Portal/API, Stroke Signs & Symptoms Discharge Data Primary Care Provider: Minerva Hearn Discharges patient from system. Discharge Date/Time: 06/18/21 10:45 Quality VTE Deep Vein Thrombosis/Pulmonary Embolism Present on Admission: No
[2021-06-18] MEDS: POTASSIUM CHLORIDE 20 MEQ TAB 40 MEQ PO (08:56)
[2021-06-18 08:57] VITALS: BP 137/62; PULSE 70
[2021-06-18] MEDS: lisinopriL 20 MG TABLET 40 MG PO (08:57)
[2021-06-18] MEDS: AMLODIPINE 5 MG TABLET 10 MG PO (08:57)
[2021-06-18] MEDS: ASPIRIN EC 81 MG TABLET PO (08:58)
[2021-06-18] MEDS: methylPREDNISolone 125 MG/2 ML VIAL 60 MG IV (08:58)
[2021-06-18] MEDS: ENOXAPARIN 40 MG/0.4 ML SYRINGE SUBCUT (08:58)
[2021-06-18] MEDS: CHOLECALCIFEROL (VITAMIN D3) 1,000 UNIT TABLET 1000 UNIT PO (08:58)
[2021-06-18] MEDS: ATORVASTATIN 20 MG TABLET 10 MG PO (08:59)
[2021-06-18] MEDS: atenoloL 50 MG TABLET PO (08:59)
[2021-06-18 09:39] VITALS: BP 137/62; PULSE 70; RESP 14; TEMP 36.5; O2SAT 92
--- NOTE | 2021-06-18 13:14 | PC.NURSE ---
Addendum entered by Deena Espinoza R.N. 06/18/21 13:22: MD at bedside this a.m. clearing her for discharge home with oral antibiotics and steroid medication. She denies any distress or pain. Showered and eating with good po intake. Her arrives and RN reviews discharge medication instructions. She verbalizes understanding of medications and is escorted via w/ch to private vehicle with her and all of her belongings this a.m. Original Note: Pt is A&Ox3, VSS, afebrile on RA. She has a slight productive cough, clearing secretions well. Reports feeling much better with much less SOB with activity.
[2021-06-19 10:08] LABS: Osmolality Urine 287 mOsmol/kg (.)
== END 2021-06-18 10:45 | disposition home or self-care (01) | DRG 193 ==
LOC: ED 22:58 → AC 06-17 03:21
PROVIDERS: Admitting Provider Family Medicine; Emergency Provider Emergency Medicine; PCP Family Medicine; Referring Provider Emergency Medicine; Visit Provider Family Medicine
DX: J18.9 Pneumonia, unspecified organism (principal); J96.01 Acute respiratory failure with hypoxia; J45.901 Unspecified asthma with (acute) exacerbation; E87.1 Hypo-osmolality and hyponatremia; E87.6 Hypokalemia; I10 Essential (primary) hypertension; Z20.822 Contact with and (suspected) exposure to COVID-19
CPT/HCPCS: 36415; 71046; 80048; 80053; 83605; 83935; 84145; 84300; 85025; 87040; 87635; 93005; 93010; 94640; 94667; 94762; 96365; 96367; 96375; 99222; 99238; 99284; 99285; C9803; J0696; J1650; J2930

== ENCOUNTER → 2021-06-26 13:01 | Outpatient (CLI) | payer MEDICARE, OTHER, SELFPAY ==
[2021-06-17 12:29] VITALS: BMI 24.0
[2021-06-26 14:23] LABS: BUN Creatinine Ratio 25.9 (6-22); Blood Urea Nitrogen 14 mg/dL (7-17); Calcium 9.3 mg/dL (8.4-10.2); Carbon Dioxide 26 mmol/L (22-32); Chloride 101 mmol/L (98-107); Estimated Glomerular Filt Rate > 60.0 mL/min (>60); Glucose 139 mg/dL (80-110); HEMOLYSIS < 15 (0-50); Potassium 3.8 mmol/L (3.4-5.1); Sodium 134 mmol/L (137-145)
== END ==
PROVIDERS: PCP Family Medicine; Referring Provider Family Medicine; Visit Provider Family Medicine
DX: E87.1 Hypo-osmolality and hyponatremia (principal)
CPT/HCPCS: 36415; 80048

== ENCOUNTER → 2021-09-18 08:04 | Outpatient (CLI) | payer MEDICARE, OTHER, SELFPAY ==
[2021-06-17 12:29] VITALS: BMI 24.0
--- NOTE | 2021-09-18 | DI.RAD.S_ITS ---
PROCEDURE: FL BARIUM SWALLOW W SPEECH INDICATIONS: DYSPHAGIA; RECENT ASPIRATION PNEUMONIA COMPARISON: None. TECHNIQUE: Examination was conducted in conjunction with speech pathology per standard protocol. In the lateral projection, filming was performed of the patient swallowing. AP projection filming may also be performed with patient swallowing. COMPARISON: FINDINGS: Function: The oral preparatory phase appears normal, with proper containment. The subsequent oral propulsive phase, pharyngeal phase, and esophageal phase of swallowing also appear normal with all proffered substances. Episode of laryngotracheal penetration noted during serial swallowing of thin liquid. No laryngotracheal aspiration. Pooling identified in the right piriform sinus which is not completely cleared with repeat swallows. Morphology: No cricopharyngeal bar is identified. No cervical esophageal webs. No Zenker's diverticulum. Smooth narrowing of the distal esophagus at the GE junction which delayed passage of calibrated 13 millimeter barium tablet. IMPRESSION: 1. Single episode of laryngotracheal penetration with thin liquid. No aspiration. 2. Right piriform sinus pooling. 3. Smooth narrowing of the distal esophagus at the GE junction causes delayed passage of calibrated barium tablet. Recommend gastroenterology consultation. Please see speech pathology report for additional study details. Dictated by: Carline Klein MD, PhD on 09/18/2021 at 9:19 Approved by: Carline Klein MD, PhD on 09/18/2021 at 9:22
--- NOTE | 2021-09-18 17:47 | ST.SWALLOW ---
Visit Care Team Role Provider Type Minerva Hearn MD Primary Care Provider Physician Specialty: Family Practice Address: [address] [place] [address], [address], [place], [address] Email: [email or web address] Dunn [email or web address] Attending Provider Non-Staff Referring Provider Specialty: Medical Address: [address] [place] [address], [address], [place], [address] Email: Modified Barium Swallow Study PRINCIPAL IOS DEVELOPER Modified Barium Swallow Study Start: 09/18/21 16:45 Freq: Status: Active Protocol: Document 09/18/21 16:45 ALL (Rec: 09/18/21 17:46 ALL [id number]) Modified Barium Swallow Study Total Time Visit Start Time 08:30 Visit Stop Time 09:15 Total Visit Minutes [address] Cheyenne Dunn Reason for Referral Dysphagia; Recent Aspiration Pneumonia Setting Setting Outpatient Care Patient Information Identification Type Name,ID Card Patient History The pt is a 80-yr-old female with c/o frequent coughing which she attributes to seasonal allergies and asthma. She was recently hospitalized (Jun 16-2021) and found to have aspiration pneumonia. She attends today as part of her followup from that hospital stay. The pt denies coughing or any other difficulty with oral intake. Subjective Observations The pt arrived on time unaccompanied and was seated in the fluoroscopy chair. The procedure was explained and the pt agreed to participate. Patient Positioning Position View Lat-A/P Imaging Lateral View Textures Administered Trials Presented Thin Liquid via Spoon,Thin Liquid via Cup,Burdick Liquid via Spoon,Burdick Liquid via Cup,Honey Liquid via Spoon, Dysphagia Blenderized Textures ,Regular Textures Oral Phase Source: MBSIMP (TM) (C) Bolus Specific Scoring Grid Lip Closure No Impairment (WNL) Tongue Control During Bolus Hold No Impairment (WNL) Bolus Prep/Mastication No Impairment (WNL) Bolus Transport/Lingual Motion No Impairment (WNL) A/P Lingual Propulsion Delay No Oral Residue Mild Impairment Residue Clearing WFL Nasal Regurgitation No Additional Oral Phase Observations Oral Peripheral Exam: Symmetrical features. Mild lingual weakness and reduced buccal and mandible coordination with lateral movements. Pt has natural dentition in good condition for age. Soft palate elevated upon phonation. Pharyngeal Phase Source: MBSIMP (TM) (C) Bolus Specific Scoring Grid Delayed Initiation of Pharyngeal Swallow Yes: With solids to vallecula Soft Palate Elevation No Impairment (WNL) Tongue Base Strength/Range of Motion Mild Impairment Residue Along the Tongue Base Yes Clearance of Residue Along Tongue Base Mild Impairment Laryngeal Elevation No Impairment (WNL) Anterior Hyoid Movement Moderate Impairment Epiglottic Range of Motion No Impairment (WNL) Vallecular Residue Yes: Greatest with solids Clearance of Vallecular Residue Moderate Impairment Laryngeal Vestibular Closure Mild Impairment Pharyngeal Stripping Wave Moderate Impairment Posterior Pharyngeal Wall Residue Yes: Trace to mild Clearance of Posterior Pharyngeal Wall Mild Impairment Residue Upper Esophageal Sphincter Opening WFL Residue in the Pyriform Sinuses Yes: Right side significantly greater than left Clearance of Residue in the Pyriform Severe Impairment Sinuses Esophageal Clearance Upright Position Mild Impairment Pharyngoesophageal Backflow Observed No Additional Pharyngeal Phase Observations Video review of MBSS revealed penetration of thin liquids during single and consecutive sips and of pharyngeal residue from vallecula x1 each without contact with VFs and not ejected from the airway (PAS 3). The pt did not independently cough. PRINCIPAL IOS DEVELOPER instructed her to cough, and the contrast was cleared. No other airway penetration and no aspiration was noted. Hyloaryngeal elevation was WNL with minimal to no anterior propulsion, likely contributing to incomplete seal of the laryngeal vestibule. Minimal to no pharyngeal stripping was was also noted. Mild pharyngeal residue was observed with liquids, increasing significantly with solids at vallecula, aryepiglottic folds and greatest at pyriform sinuses. A/P view revealed the majority of residue was at the right side vallecula and pyriform sinus. This cleared with several sips of thin liquid. In A/P view head turn to the right both reduced right side pooling during the swallow and assisted in clearance post-swallow. A/P View Textures Administered Trials Presented Burdick Liquid via Cup, Dysphagia Blenderized Textures ,Barium Tablet A/P View Observations Pharyngeal Contraction WFL Residue Observed Valleculae Right,Pyriform Sinus Right Esophageal Function Slowed Clearing,Narrowing Esophageal Clearance Upright Position Mild Impairment Additional Observations Radiologist note: Smooth narrowing of the distal esophagus at the GE junction causes delayed passage of calibrated barium tablet. Recommend gastroenterology consultation. Clinical Impressions Dysphagia Type Moderate Pharyngeal Dysphagia Findings The pt presents with moderate pharyngeal dysphagia secondary to reduced pharyngeal and laryngeal muscular strength, particularly on the right side. Minimal hyolaryngeal anterior excursion resulted in incomplete closure of the laryngeal vestibule and allowed for trace penetration of thin liquid and vallecular residue, silent in nature and without aspiration. Pharyngeal stripping wave was minimally present. Significant residue pooled on the right side greater than left in both vallecula and pyriform sinuses and required multiple sips of water to clear. Head turn to right side was effective in reducing pooling to trace to mild amounts and also assisted in clearing residue. The pt is at mild risk of aspiration if head turn to right is used with all swallows. Risk increased without compensatory strategy. Narrowing of the distal esophagus was noted by Radiologist as well as delayed passage of solids and a 13mm barium tablet. GI consultation is recommended. Rehabilitation Potential Good Patient Appropriate for Therapy Yes Recommendations Diet Liquids Order Thin Diet Order Regular Medication Recommendation As Tolerated Additional Dietary Needs Single Sips Aspiration Precautions Recommended Precautions Upright at 90 Degrees,Small Bites/Sips,Double Swallow, Right Head Turn Treatment Plan Therapy Recommendations Outpatient Speech Therapy Recommended Referrals GI Consult Compensatory Strategies Recommendations Sitting Upright (90 deg),Turn Head Right,Double Swallow, Small Bites and Sips Short Term Goals 1. The pt will use compensatory swallow strategies to reduce pharyngeal residue and risk of aspiration. 2. The pt will perform exercises to increase strength , coordination and ROM of musculature to reduce pharyngeal residue and risk of aspiration. Subway Car Repairer Goals 1. The pt will tolerate regular textures and thin liquids without laryngeal penetration or tracheal aspiration and no greater than mild pharyngeal residue, as measured by repeat MBSS after course of dysphagia therapy. Placement Recommendation After Discharge Outpatient Therapy Additional Recommendations/Comments Followup MBS in 3-6 mos
== END ==
PROVIDERS: PCP Family Medicine; Referring Provider Physician Assistant; Visit Provider Physician Assistant
DX: R13.10 Dysphagia, unspecified (principal); Z87.01 Personal history of pneumonia (recurrent)
CPT/HCPCS: 74230; 92611

== ENCOUNTER → 2021-12-28 10:22 | Outpatient (CLI) | payer MEDICARE, OTHER, SELFPAY ==
[2021-06-17 12:29] VITALS: BMI 24.0
--- NOTE | 2021-12-28 10:24 | DI.MG.S_ITS ---
BILATERAL DIGITAL SCREENING MAMMOGRAM 3D/2D WITH CAD: 12/28/2021 CLINICAL: Routine screening. Family history of breast cancer. Comparison is made to exams dated: 10/10/2020 mammogram, 07/02/2019 mammogram, and 05/15/2018 mammogram - [facility]. The tissue of both breasts is heterogeneously dense. This may lower the sensitivity of mammography. Current study was also evaluated with a Computer Aided Detection (CAD) system. No significant masses, calcifications, or other findings are seen in either breast. There has been no significant interval change. IMPRESSION: NEGATIVE There is no mammographic evidence of malignancy. A 1 year screening mammogram is recommended. Based on the Tyrer Cuzick model (a risk assessment model) the patient's lifetime risk is 4.4% and her 10 year risk is 0.0%. According to the ACR, ACS, and NCCN guidelines, an annual breast MRI exam along with mammogram is recommended if the patient's lifetime risk is 20% or greater. This exam was interpreted at Station ID: [id number]. NOTE: For mammograms, a report in lay terms will be sent to the patient. Approximately 15% of breast malignancies will not be visualized mammographically. In the management of a palpable breast mass, a negative mammogram must not discourage biopsy of a clinically suspicious lesion. Electronically Signed By: Cody arguello/linda:12/30/2021 07:18:59 letter sent: Normal Exam ACR BI-RADS Category 1: Negative [id number]
== END ==
PROVIDERS: PCP Family Medicine; Referring Provider Family Medicine; Visit Provider Family Medicine
DX: Z12.31 Encounter for screening mammogram for malignant neoplasm of breast (principal); Z80.3 Family history of malignant neoplasm of breast
CPT/HCPCS: 77063; 77067

== ENCOUNTER → 2022-07-26 07:25 | Outpatient (CLI) | payer MEDICARE, OTHER, SELFPAY ==
[2021-06-17 12:29] VITALS: BMI 24.0
[2022-07-26 09:12] LABS: Add Manual Diff / Slide Review NO; Basophils Absolute Auto 100 /uL (0-100); Basophils Percent Auto 1.2 % (0-2); Eosinophils Absolute Auto 300 /uL (0-450); Eosinophils Percent Auto 4.3 % (2-4); Hematocrit 40.1 % (36-46); Hemoglobin 13.6 g/dL (12.0-16.0); Lymphocytes Absolute Auto 1500 /uL (1100-4500); Lymphocytes Percent Auto 22.7 % (25-40); Mean Corpuscular HGB Conc 33.9 % (30-36); Mean Corpuscular Hemoglobin 30.9 PG (26-34); Monocytes Absolute Auto 500 /uL (0-900); Monocytes Percent Auto 8.3 % (3-14); Neutrophils Absolute Auto 4100 /uL (1500-7000); Neutrophils Percent Auto 63.5 % (50-75); Platelet Count 306 X10^3/uL (150-400); Red Cell Distribution Width 14.7 % (11.6-14.8); White Blood Cell Count 6.4 X10^3/uL (4.5-11.0)
[2022-07-26 09:19] LABS: Hemoglobin A1C% w Est Avg Glu 5.8 % (4.0-6.0)
[2022-07-26 10:06] LABS: Alanine Aminotransferase 18 IU/L (<35); Albumin 4.8 g/dL (3.5-5.0); Albumin Globulin Ratio 1.7 (1.0-2.8); Alkaline Phosphatase 86 U/L (38-126); Aspartate Aminotransferase 21 IU/L (14-36); BUN Creatinine Ratio 24.5 (6-22); Bilirubin Total 0.7 mg/dL (0.2-1.3); Blood Urea Nitrogen 13 mg/dL (7-17); Calcium 10.1 mg/dL (8.4-10.2); Carbon Dioxide 25 mmol/L (22-32); Chloride 103 mmol/L (98-107); Cholesterol 235 mg/dL (140-199); Estimated Glomerular Filt Rate > 60 mL/min (>60); Globulin 2.8 g/dL (1.7-4.1); Glucose 97 mg/dL (80-110); HEMOLYSIS < 15 (0-50); Potassium 4.4 mmol/L (3.4-5.1); Sodium 138 mmol/L (137-145); Total Protein 7.6 g/dL (6.3-8.2); Triglycerides 65 mg/dL (35-150)
[2022-07-26 10:21] LABS: HDL Cholesterol 119 mg/dL (40-60); LDL Cholesterol Calculated 103 mg/dL (<100)
[2022-07-26 10:34] LABS: TSH w/ Reflex to FT4 2.18 uIU/mL (0.47-4.68)
== END ==
PROVIDERS: Family Provider Family Medicine; PCP Family Medicine; Referring Provider Physician Assistant; Visit Provider Physician Assistant
DX: E78.5 Hyperlipidemia, unspecified (principal); R73.01 Impaired fasting glucose; I10 Essential (primary) hypertension
CPT/HCPCS: 36415; 80053; 80061; 83036; 84443; 85025

== ENCOUNTER 2022-09-01 10:30 | Outpatient (RCR) | payer MEDICARE, OTHER, SELFPAY ==
[2021-06-17 12:29] VITALS: BMI 24.0
--- NOTE | 2022-03-27 13:28 | ST.OPIE ---
Visit Care Team Role Provider Type Minerva Hearn MD Family Provider Physician Primary Care Provider Specialty: Family Practice Address: [address] [place] [address], [address], [place], [address] Email: [email or web address] Cheyenne Dunn PA-C Attending Provider Non-Staff Referring Provider Specialty: Medical Address: [id number] [place] [address], [address], [place], [address] Email: Speech-Language Pathology Initial Evaluation LOOM FIXER SUPERVISOR Clinical Swallow Evaluation Start: 03/27/22 13:01 Freq: Status: Active Protocol: Document 03/27/22 13:02 CG (Rec: 03/27/22 13:28 CG [id number]) Clinical Swallow Evaluation Session Time Visit Start Time 11:30 Visit Stop Time 12:10 Total Visit Minutes 40 Visit Information Visit Number 1 Plan of Care Dates 03/27/22-06/07/22 Insurance Information Medicare Referral Referring Provider Cheyenne Dunn Reason for Referral Difficulty swallowing Setting Assessment Location Outpatient Care Visit Type Note Type Initial evaluation Next Note Type Next Note Type Treatment Note Patient Information Identification Type Name History Per recent MBS, the pt is a 80 -year-old female with c/o frequent coughing, which she attributes to seasonal allergies and asthma. She was recently hospitalized (Jun 16- 2021) and found to have aspiration pneumonia. She attended a modified barium swallow study as part of her follow up from that hospital stay. The patient denies coughing or any other difficulty with oral intake. The results of the MBS indicated the pt presents with reduced anterior hyoid movement, likely contributing to incomplete closure of the laryngeal vestibule. Additionally, the MBS indicated a moderate impairment in the pt's pharyngeal stripping wave, which resulted in diffuse pharyngeal residue with solids , particularly in the R side of the vallecula and pyriform sinus. This was cleared with multiple sips of thin liquid. Head turn to the right decreased pharyngeal residue and also helped clear residue after the swallow. Subjective Observations Pt attended the evaluation with her . Appeared well other than occasional dry cough. Pt was compliant with skilled procedures, modifications, and exercises. She expressed understanding of the results of the evaluation and the POC. Reported by Patient Other Symptoms Difficulty swallowing liquids, Difficulty swallowing solids, History of aspiration or pneumonia Current Diet Regular,Thin liquids Baseline Feeding Method Independent in self-feeding Objective Assessment Mental Status Alert,Responsive,Cooperative Comment Oral mechanism exam completed with MBS on 09/18/21. Food and Liquid Trials Strategies Attempted Head rotation Results Food and liquid trials completed with MBS on 09/18/21. Findings Swallowing Function Pharyngeal phase dysphagia Severity of Swallow Impairment Moderately impaired Contributing Factors to Swallow Impaired airway protection, Impairment Excessive pharyngeal residue Prognosis Good Based on Cognitive status,Family support Impact on Safety and Functioning Risk for aspiration Recommendations Swallowing Treatment Yes Frequency 1/ wk Recommended Solids Regular Recommended Liquids Thin Other Recommendations Head turn R for all intake; clear residue with sips thin liquid Safety Precautions/Swallowing Remain upright (90 degrees) Recommendations during all oral intake,Upright position at least 30 minutes after meals Medication Recommendations As Tolerated Discharge Recommendations Outpatient therapy Education Patient/Caregiver Education Described results of evaluation,Patient expressed understanding of evaluation, Patient expressed agreement with goals & treatment plans, Patient expressed understanding of safety precautions,Patient expressed understanding of feeding recommendations,Family/ caregivers expressed understanding of safety precautions,Family/caregivers expressed understanding of feeding recommendations, Patient requires further education/training,Family/ caregivers require further education/training Goals Short-term Goals Pt will complete pharyngeal/ laryngeal strengthening exercises in order to restore pharyngeal/laryngeal function and decrease s/s dysphagia during intake. Pt will recall and implement compensatory strategies for swallowing to increase safety during oral intake and decrease risk for aspiration pneumonia. Long-term Goals Pt will safely tolerate least restrictive diet without s/s aspiration or penetration.
--- NOTE | 2022-03-27 13:29 | ST.OPPOC ---
Physical, Occupational & Speech Therapy At [facility] Visit Care Team Role Provider Type Minerva Hearn MD Family Provider Physician Primary Care Provider Address: [facility] [facility], [address], [place], [address] Cheyenne Dunn PA-C Attending Provider Non-Staff Referring Provider Address: [address] [facility], [address], [place], [address] Speech Pathology Plan of Care Plan of Care Dates 03/27/22-06/07/22 Referring Provider Cheyenne Dunn Patient History Per recent MBS, the pt is a 80-year-old female with c/o frequent coughing, which she attributes to seasonal allergies and asthma. She was recently hospitalized (Jun 16-2021) and found to have aspiration pneumonia. She attended a modified barium swallow study as part of her follow up from that hospital stay. The patient denies coughing or any other difficulty with oral intake. The results of the MBS indicated the pt presents with reduced anterior hyoid movement, likely contributing to incomplete closure of the laryngeal vestibule. Additionally, the MBS indicated a moderate impairment in the pt's pharyngeal stripping wave, which resulted in diffuse pharyngeal residue with solids, particularly in the R side of the vallecula and pyriform sinus. This was cleared with multiple sips of thin liquid. Head turn to the right decreased pharyngeal residue and also helped clear residue after the swallow. Short-term Goals Pt will complete pharyngeal/laryngeal strengthening exercises in order to restore pharyngeal/laryngeal function and decrease s/s dysphagia during intake. Pt will recall and implement compensatory strategies for swallowing to increase safety during oral intake and decrease risk for aspiration pneumonia. Long-term Goals Pt will safely tolerate least restrictive diet without s/s aspiration or penetration. Comment: Electronically Signed by: DOROTHY Epstein 03/27/22 5034 If you are in agreement with this Plan of Care, please return a signed and dated copy. I have reviewed this Plan of Care and certify that the skilled therapy services above are required to meet the patient?s needs. Physician Signature Date Printed Name and Credentials Clinical Instructor Signature Printed Name and Credentials
--- NOTE | 2022-04-03 12:15 | ST.IPDYTX ---
Visit Care Team Role Provider Type Minerva Hearn MD Family Provider Physician Primary Care Provider Specialty: Family Practice Address: [facility] [facility], [address], [place], [address] Email: [email or web address] Cheyenne Dunn PA-C Attending Provider Non-Staff Referring Provider Specialty: Medical Address: [address] [facility] [address] [facility], [address], [place], [address] Email: DAIRY PRODUCTS MAKER Dysphagia Treatment DAIRY PRODUCTS MAKER Dysphagia Treatment Start: 03/27/22 13:01 Freq: Status: Active Protocol: Document 04/03/22 12:08 LOBO (Rec: 04/03/22 12:15 ZS [id number]) Dysphagia Treatment Session Time Visit Start Time 11:30 Visit Stop Time 12:10 Total Visit Minutes 40 Visit Information Visit Number 1 Plan of Care Dates 03/27/22-06/07/22 Insurance Information Medicare Setting Assessment Location Outpatient Care Visit Type Note Type Treatment Note Next Note Type Next Note Type Treatment Note Patient Information Identification Type Name Subjective Observations Pt arrived on time accompanied by her , who was present for the session. She reported tracking HEP and missing only 1 day. Pt stated she had difficulty with effortful swallow and tongue out exercise, but all other exercises went well. Treatment Treatment Activities Reviewed exercises provided in previous session and practiced each one, providing verbal feedback as needed. Answered pt questions. Provided education regarding aspiration pneumonia. Assessment Assessment of Improvement Pt exhibited difficulty with tongue protrusion during swallow, often the tongue would move behind line of lips /teeth during swallow. She reported base of tongue elevation was much easier. Discussed increasing repetitions of this exercise to build strength for tongue out exercise. Pt stated she did try this exercise with water and was more successful with water. Provided education on aspiration, role of tongue in swallow safety, and why water is not recommended for this exercise. Pt reported understanding. Pt exhibited reduced muscle engagement during effortful swallow and DAIRY PRODUCTS MAKER recommended muscle groups to increase awareness and strength in each individual area and then putting it back together. Difficulty observed with Mendehlson Manuever, with pt tilting head back and inhaling to lift larynx prior to swallowing. Discussed head position for swallow and lifting larynx during swallow rather than with inhale. Pt expressed understanding. Diet Recommendations Recommendations Continue Current Diet Liquids Order Thin Diet Order Regular Medication Recommendations As Tolerated Treatment Plan Dysphagia Goals Pt will complete pharyngeal/ laryngeal strengthening exercises in order to restore pharyngeal/laryngeal function and decrease s/s dysphagia during intake. Pt will recall and implement compensatory strategies for swallowing to increase safety during oral intake and decrease risk for aspiration pneumonia.
--- NOTE | 2022-04-08 11:33 | ST.IPDYTX ---
Visit Care Team Role Provider Type Minerva Hearn MD Family Provider Physician Primary Care Provider Specialty: Family Practice Address: [address] [place] [address], [address], [place], [address] Email: [email or web address] Cheyenne Dunn PA-C Attending Provider Non-Staff Referring Provider Specialty: Medical Address: [address] [facility], [address], [place], [address] Email: BAKERY TEAM MEMBER Dysphagia Treatment BAKERY TEAM MEMBER Dysphagia Treatment Start: 03/27/22 13:01 Freq: Status: Active Protocol: Document 04/08/22 11:29 ZS (Rec: 04/08/22 11:32 ZS [id number]) Dysphagia Treatment Session Time Visit Start Time 10:35 Visit Stop Time 11:10 Total Visit Minutes 35 Visit Information Visit Number 2 Plan of Care Dates 03/27/22-06/07/22 Insurance Information Medicare Setting Assessment Location Outpatient Care Visit Type Note Type Treatment Note Next Note Type Next Note Type Treatment Note Patient Information Identification Type Name Subjective Observations Pt arrived on time accompanied by her , who was present for the session. She reported completing HEP. Pt stated she had difficulty with effortful swallow and tongue out exercise, but all other exercises went well. Treatment Treatment Activities Reviewed exercises provided in previous session and practiced each one, providing verbal feedback as needed. Answered pt questions. Provided education regarding measuring progress. Assessment Assessment of Improvement Pt exhibited difficulty with tongue protrusion during swallow, often the tongue would move behind line of lips /teeth during swallow. She reported base of tongue elevation was much easier. Discussed increasing repetitions of this exercise to build strength for tongue out exercise. Provided education on measuring progress and pros and cons of repeat MBS. Pt reported understanding. Pt to continue muscle groups during effortful swallow to increase awareness and strength in each individual area and then putting it back together. Difficulty observed with Mendehlson Manuever, with pt tilting head back and inhaling to lift larynx prior to swallowing. Discussed head position for swallow and lifting larynx during swallow rather than with inhale. Pt expressed understanding. Diet Recommendations Recommendations Continue Current Diet Liquids Order Thin Diet Order Regular Medication Recommendations As Tolerated Treatment Plan Dysphagia Goals Pt will complete pharyngeal/ laryngeal strengthening exercises in order to restore pharyngeal/laryngeal function and decrease s/s dysphagia during intake. Pt will recall and implement compensatory strategies for swallowing to increase safety during oral intake and decrease risk for aspiration pneumonia.
--- NOTE | 2022-04-14 11:58 | ST.IPDYTX ---
Visit Care Team Role Provider Type Minerva Hearn MD Family Provider Physician Primary Care Provider Specialty: Family Practice Address: [address] [place] [address], [address], [place], [address] Email: [email or web address] Cheyenne Dunn PA-C Attending Provider Non-Staff Referring Provider Specialty: Medical Address: [address] [facility], [address], [place], [address] Email: CONTINUOUS IMPROVEMENT COORDINATOR Dysphagia Treatment CONTINUOUS IMPROVEMENT COORDINATOR Dysphagia Treatment Start: 03/27/22 13:01 Freq: Status: Active Protocol: Document 04/14/22 11:56 ZS (Rec: 04/14/22 11:58 ZS [id number]) Dysphagia Treatment Session Time Visit Start Time 11:30 Visit Stop Time 12:00 Total Visit Minutes 30 Visit Information Visit Number 3 Plan of Care Dates 03/27/22-06/07/22 Insurance Information Medicare Setting Assessment Location Outpatient Care Visit Type Note Type Treatment Note Next Note Type Next Note Type Treatment Note Patient Information Identification Type Name Subjective Observations Pt arrived on time accompanied by her , who was present for the session. She reported completing HEP. Pt stated she had difficulty with effortful swallow and tongue out exercise, but all other exercises went well. Treatment Treatment Activities Reviewed exercises provided in previous session and practiced each one, providing verbal feedback as needed. Answered pt questions. Provided education regarding measuring progress. Assessment Assessment of Improvement Pt exhibited difficulty with tongue protrusion during swallow, often the tongue would move behind line of lips /teeth during swallow. She reported base of tongue elevation was much easier. Minimal engagement observed during effortful swallow exercise. Pt to continue muscle groups during effortful swallow to increase awareness and strength in each individual area and then putting it back together. Difficulty observed with Mendehlson Manuever, with pt tilting head back and inhaling to lift larynx prior to swallowing. Discussed head position for swallow and lifting larynx during swallow rather than with inhale. Pt expressed understanding. Diet Recommendations Recommendations Continue Current Diet Liquids Order Thin Diet Order Regular Medication Recommendations As Tolerated Treatment Plan Dysphagia Goals Pt will complete pharyngeal/ laryngeal strengthening exercises in order to restore pharyngeal/laryngeal function and decrease s/s dysphagia during intake. Pt will recall and implement compensatory strategies for swallowing to increase safety during oral intake and decrease risk for aspiration pneumonia.
--- NOTE | 2022-04-21 12:06 | ST.IPDYTX ---
Visit Care Team Role Provider Type Minerva Heanr MD Family Provider Physician Primary Care Provider Specialty: Family Practice Address: [facility] [facility], [address], [place], [address] Email: [email or web address] Cheyenne Dunn PA-C Attending Provider Non-Staff Referring Provider Specialty: Medical Address: [address] [facility], [address], [place], [address] Email: TEST ENGINEERING TECHNICIAN Dysphagia Treatment TEST ENGINEERING TECHNICIAN Dysphagia Treatment Start: 03/27/22 13:01 Freq: Status: Active Protocol: Document 04/21/22 12:01 LOBO (Rec: 04/21/22 12:06 ZS [id number]) Dysphagia Treatment Session Time Visit Start Time 11:30 Visit Stop Time 12:00 Total Visit Minutes 30 Visit Information Visit Number 4 Plan of Care Dates 03/27/22-06/07/22 Insurance Information Medicare Setting Assessment Location Outpatient Care Visit Type Note Type Treatment Note Next Note Type Next Note Type Treatment Note Patient Information Identification Type Name Subjective Observations Pt arrived on time accompanied by her , who was present for the session. She reported completing HEP. She stated she had not been consistent with frequency of HEP, though did complete exercises. She inquired about purpose of speech therapy and HEP. Treatment Treatment Activities Reviewed results of MBS, exercises provided in previous session, and role of each exercise in recovery based on MBS results. Practiced each exercise, providing verbal feedback as needed. Answered pt questions. Provided education regarding measuring progress and POC moving forward. Assessment Assessment of Improvement Pt exhibited difficulty with tongue protrusion during swallow, often the tongue would move behind line of lips /teeth during swallow. She reported base of tongue elevation was much easier. Minimal engagement observed during effortful swallow exercise, though improvement noted since previous session. Pt to continue muscle groups during effortful swallow to increase awareness and strength in each individual area and then putting it back together. Encouraged use of mirror for visual feedback on muscle engagement. Significant improvement observed with Mendehlson Manuever, as pt did not hold her breath for larynx elevation. Provided feedback regarding head position, as pt continued to lift chin slightly for this exercise. Reviewed results of MBS and pt expressed understanding. Discussed POC with pt continuing for 1x per week through April and possible transition to EOW in May given progress. Diet Recommendations Recommendations Continue Current Diet Liquids Order Thin Diet Order Regular Medication Recommendations As Tolerated Treatment Plan Dysphagia Goals Pt will complete pharyngeal/ laryngeal strengthening exercises in order to restore pharyngeal/laryngeal function and decrease s/s dysphagia during intake. Pt will recall and implement compensatory strategies for swallowing to increase safety during oral intake and decrease risk for aspiration pneumonia.
--- NOTE | 2022-04-28 14:00 | ST.IPDYTX ---
Visit Care Team Role Provider Type Minerva Hearn MD Family Provider Physician Primary Care Provider Specialty: Family Practice Address: [facility] [facility], [address], [place], [address] Email: [email or web address] Cheyenne Dunn PA-C Attending Provider Non-Staff Referring Provider Specialty: Medical Address: [address] [facility], [address], [place], [address] Email: BIOMEDICAL ENGINEERING INTERNSHIP Dysphagia Treatment BIOMEDICAL ENGINEERING INTERNSHIP Dysphagia Treatment Start: 03/27/22 13:01 Freq: Status: Active Protocol: Document 04/28/22 13:57 ZS (Rec: 04/28/22 14:00 ZS [id number]) Dysphagia Treatment Session Time Visit Start Time 13:30 Visit Stop Time 14:00 Total Visit Minutes 30 Visit Information Visit Number 5 Plan of Care Dates 03/27/22-06/07/22 Insurance Information Medicare Setting Assessment Location Outpatient Care Visit Type Note Type Treatment Note Next Note Type Next Note Type Progress Note Patient Information Identification Type Name Subjective Observations Pt arrived on time accompanied by her , who was present for the session. She reported completing HEP. Treatment Treatment Activities Reviewed and practiced exercises provided in previous session, providing verbal feedback as needed. Answered pt questions. Provided education regarding measuring progress and POC moving forward. Assessment Assessment of Improvement Minimal engagement observed during effortful swallow exercise. Pt to continue muscle groups during effortful swallow to increase awareness and strength in each individual area and then putting it back together. Difficulty observed with Kristine Carpio, with pt tilting head back and inhaling to lift larynx prior to swallowing. Discussed head position for swallow and lifting larynx during swallow rather than with inhale. Provided alternative exercise with high pitch hum rather than swallow due to pt confusion observed with swallow exercise. Pt expressed understanding. Discussed POC with pt continuing for 1x per week through April and possible transition to EOW in May given progress. Diet Recommendations Recommendations Continue Current Diet Liquids Order Thin Diet Order Regular Medication Recommendations As Tolerated Treatment Plan Dysphagia Goals Pt will complete pharyngeal/ laryngeal strengthening exercises in order to restore pharyngeal/laryngeal function and decrease s/s dysphagia during intake. Pt will recall and implement compensatory strategies for swallowing to increase safety during oral intake and decrease risk for aspiration pneumonia.
--- NOTE | 2022-05-12 10:55 | ST.IPDYTX ---
Visit Care Team Role Provider Type Minerva Hearn MD Family Provider Physician Primary Care Provider Specialty: Family Practice Address: [address] [place] [address], [address], [place], [address] Email: [email or web address] Cheyenne Dunn PA-C Attending Provider Non-Staff Referring Provider Specialty: Medical Address: [id number] [place] [address], [address], [place], [address] Email: ART HISTORY PROFESSOR Dysphagia Treatment ART HISTORY PROFESSOR Dysphagia Treatment Start: 03/27/22 13:01 Freq: Status: Active Protocol: Document 05/12/22 10:49 ZS (Rec: 05/12/22 10:55 ZS [id number]) Dysphagia Treatment Session Time Visit Start Time 10:30 Visit Stop Time 10:50 Total Visit Minutes 20 Visit Information Visit Number 6 Plan of Care Dates 05/12/2022 - 09/05/2022 Insurance Information Medicare Setting Assessment Location Outpatient Care Visit Type Note Type Progress Note Next Note Type Next Note Type Treatment Note Patient Information Identification Type Name Subjective Observations Pt arrived on time accompanied by her , who was present for the session. She reported completing HEP. Treatment Treatment Activities Reviewed and practiced exercises provided in previous session, providing verbal feedback as needed. Answered pt questions. Provided education regarding measuring progress and POC moving forward. Assessment Assessment of Improvement Minimal engagement observed during effortful swallow exercise. Pt to continue muscle groups during effortful swallow to increase awareness and strength in each individual area and then putting it back together. Continued difficulty observed with Mendehlson Manuever, with pt tilting head back and inhaling to lift larynx prior to swallowing. Removed this exercise from HEP , reviewed humming at high pitch exercise as alternative, due to repeated difficulty and little retention of feedback with Mendehlson Manuever. Pt stated she did not complete the humming exercise this week, stating she can be stubborn. Pt expressed understanding with HEP modification. Discussed POC and plan for discharge moving forward. Pt expressed understanding and agreement. Pt has demonstrated improvement in exercises, though exhibits low retention of feedback from session to session. Modifications made to HEP to accommodate for confusion. Pt reported decreased coughing when eating and drinking and stated she is able to complete increased number of tasks or increased difficulty with other HEP tasks. Recommend continued therapy EOW for increased independence in HEP. Diet Recommendations Recommendations Continue Current Diet Liquids Order Thin Diet Order Regular Medication Recommendations As Tolerated Treatment Plan Dysphagia Goals Pt will complete pharyngeal/ laryngeal strengthening exercises in order to restore pharyngeal/laryngeal function and decrease s/s dysphagia during intake. Pt will recall and implement compensatory strategies for swallowing to increase safety during oral intake and decrease risk for aspiration pneumonia.
--- NOTE | 2022-05-12 10:55 | ST.OPPOC ---
Physical, Occupational & Speech Therapy At [facility] Visit Care Team Role Provider Type Minerva Hearn MD Family Provider Physician Primary Care Provider Address: [facility] [facility] [facility], [address], [place], [address] Cheyenne Dunn PA-C Attending Provider Non-Staff Referring Provider Address: [address], [address], [place], [address] Speech Pathology Plan of Care Plan of Care Dates 05/12/2022 - 09/05/2022 Referring Provider Cheyenne Dunn Patient History Per recent MBS, the pt is a 80-year-old female with c/o frequent coughing, which she attributes to seasonal allergies and asthma. She was recently hospitalized (Jun 16-2021) and found to have aspiration pneumonia. She attended a modified barium swallow study as part of her follow up from that hospital stay. The patient denies coughing or any other difficulty with oral intake. The results of the MBS indicated the pt presents with reduced anterior hyoid movement, likely contributing to incomplete closure of the laryngeal vestibule. Additionally, the MBS indicated a moderate impairment in the pt's pharyngeal stripping wave, which resulted in diffuse pharyngeal residue with solids, particularly in the R side of the vallecula and pyriform sinus. This was cleared with multiple sips of thin liquid. Head turn to the right decreased pharyngeal residue and also helped clear residue after the swallow. Short-term Goals Pt will complete pharyngeal/laryngeal strengthening exercises in order to restore pharyngeal/laryngeal function and decrease s/s dysphagia during intake. Pt will recall and implement compensatory strategies for swallowing to increase safety during oral intake and decrease risk for aspiration pneumonia. Long-term Goals Pt will safely tolerate least restrictive diet without s/s aspiration or penetration. Comment: Electronically Signed by: DOROTHY Song 05/12/22 [id number] If you are in agreement with this Plan of Care, please return a signed and dated copy. I have reviewed this Plan of Care and certify that the skilled therapy services above are required to meet the patient?s needs. Physician Signature Date Printed Name and Credentials Clinical Instructor Signature Printed Name and Credentials
--- NOTE | 2022-05-26 11:29 | ST.IPDYTX ---
Visit Care Team Role Provider Type Minerva Hearn MD Family Provider Physician Primary Care Provider Specialty: Family Practice Address: [facility]note 2[facility], [address], [place], [address] Email: [email or web address] Cheyenne Dunn PA-C Attending Provider Non-Staff Referring Provider Specialty: Medical Address: [address], [address], [place], [address] Email: SPEECH AND LANGUAGE SPECIALIST Dysphagia Treatment SPEECH AND LANGUAGE SPECIALIST Dysphagia Treatment Start: 03/27/22 13:01 Freq: Status: Active Protocol: Document 05/26/22 11:21 ZS (Rec: 05/26/22 11:29 ZS [id number]) Dysphagia Treatment Session Time Visit Start Time 10:30 Visit Stop Time 10:50 Total Visit Minutes 20 Visit Information Visit Number 7 Plan of Care Dates 05/12/2022 - 09/05/2022 Insurance Information Medicare Setting Assessment Location Outpatient Care Visit Type Note Type Treatment Note Next Note Type Next Note Type Treatment Note Patient Information Identification Type Name Subjective Observations Pt arrived on time accompanied by her , who was present for the session. She reported completing HEP. Treatment Treatment Activities Reviewed and practiced exercises provided in previous session, providing verbal feedback as needed. Answered pt questions. Provided education regarding measuring progress and POC moving forward. Assessment Assessment of Improvement Tongue protruded minimally with tongue out exercise and pt reported doing 2 at home and working on completing a 3rd. Tongue initially protruded about 2-3mm and then appeared to move just behind teeth during swallow. Reviewed increasing difficulty with increased protrusion of tongue . Pt expressed understanding. Minimal engagement observed during effortful swallow exercise. Pt to continue muscle groups during effortful swallow to increase awareness and strength in each individual area and then putting it back together. Pt demonstrated humming exercise with conversational pitch and SPEECH AND LANGUAGE SPECIALIST provided feedback regarding use of high pitch to elevate larynx. Pt implemented feedback and demonstrated exercise with high pitch. Discussed POC and plan for discharge moving forward. Pt expressed understanding and agreement. Diet Recommendations Recommendations Continue Current Diet Liquids Order Thin Diet Order Regular Medication Recommendations As Tolerated Treatment Plan Dysphagia Goals Pt will complete pharyngeal/ laryngeal strengthening exercises in order to restore pharyngeal/laryngeal function and decrease s/s dysphagia during intake. Pt will recall and implement compensatory strategies for swallowing to increase safety during oral intake and decrease risk for aspiration pneumonia.
--- NOTE | 2022-06-16 10:53 | ST.IPDYTX ---
Visit Care Team Role Provider Type Minerva Hearn MD Family Provider Physician Primary Care Provider Specialty: Family Practice Address: [facility], [address], [place], [address] Email: [email or web address] Cheyenne Dunn PA-C Attending Provider Non-Staff Referring Provider Specialty: Medical Address: [address], [address], [place], [address] Email: NIPPLE THREADER Dysphagia Treatment NIPPLE THREADER Dysphagia Treatment Start: 03/27/22 13:01 Freq: Status: Active Protocol: Document 06/16/22 10:50 ZS (Rec: 06/16/22 10:53 ZS [id number]) Dysphagia Treatment Session Time Visit Start Time 10:30 Visit Stop Time 10:50 Total Visit Minutes 20 Visit Information Visit Number 8 Plan of Care Dates 05/12/2022 - 09/05/2022 Insurance Information Medicare Setting Assessment Location Outpatient Care Visit Type Note Type Treatment Note Next Note Type Next Note Type Treatment Note Patient Information Identification Type Name Subjective Observations Pt arrived on time accompanied by her , who was present for the session. She reported completing HEP. Treatment Treatment Activities Reviewed and practiced exercises provided in previous session, providing verbal feedback as needed. Answered pt questions. Provided education regarding measuring progress and POC moving forward. Assessment Assessment of Improvement Tongue protruded minimally with tongue out exercise and pt reported doing 2 at home and working on completing a 3rd. Tongue initially protruded about 2-3mm and then appeared to move just behind teeth during swallow. Reviewed increasing difficulty with increased protrusion of tongue . Pt expressed understanding. Minimal engagement observed during effortful swallow exercise and pt reported she sometimes does these without thinking about it. Discussed difference between regular swallow and effortful swallow. Suggested pt try exercise with food/liquid to decrease focus on saliva generation and increase focus on muscle engagement. Pt to continue muscle groups during effortful swallow to increase awareness and strength in each individual area and then putting it back together. Pt demonstrated humming exercise with conversational pitch and NIPPLE THREADER provided feedback regarding use of high pitch to elevate larynx. Pt implemented feedback and demonstrated exercise with high pitch. Discussed POC and plan for discharge moving forward. Pt expressed understanding and agreement. Diet Recommendations Recommendations Continue Current Diet Liquids Order Thin Diet Order Regular Medication Recommendations As Tolerated Treatment Plan Dysphagia Goals Pt will complete pharyngeal/ laryngeal strengthening exercises in order to restore pharyngeal/laryngeal function and decrease s/s dysphagia during intake. Pt will recall and implement compensatory strategies for swallowing to increase safety during oral intake and decrease risk for aspiration pneumonia.
--- NOTE | 2022-07-07 11:05 | ST.IPDYTX ---
Visit Care Team Role Provider Type Minerva Hearn MD Family Provider Physician Primary Care Provider Specialty: Family Practice Address: [facility], [address], [place], [address] Email: [email or web address] Cheyenne Dunn PA-C Attending Provider Non-Staff Referring Provider Specialty: Medical Address: [address], [address], [place], [address] Email: AQUATICS LIFEGUARD Dysphagia Treatment AQUATICS LIFEGUARD Dysphagia Treatment Start: 03/27/22 13:01 Freq: Status: Active Protocol: Document 07/07/22 11:03 LOBO (Rec: 07/07/22 11:05 ZS [id number]) Dysphagia Treatment Session Time Visit Start Time 10:30 Visit Stop Time 11:00 Total Visit Minutes 30 Visit Information Visit Number 9 Plan of Care Dates 05/12/2022 - 09/05/2022 Insurance Information Medicare Setting Assessment Location Outpatient Care Visit Type Note Type Treatment Note Next Note Type Next Note Type Treatment Note Patient Information Identification Type Name Subjective Observations Pt arrived on time accompanied by her , who was present for the session. She reported completing HEP. Treatment Treatment Activities Reviewed and practiced exercises provided in previous session, providing verbal feedback as needed. Answered pt questions. Provided education regarding measuring progress and POC moving forward. Assessment Assessment of Improvement Tongue protruded minimally with tongue out exercise and pt reported doing 2 at home and working on completing a 3rd. Tongue initially protruded about 2-3mm and then appeared to move just behind teeth during swallow. Reviewed increasing difficulty with increased protrusion of tongue . Pt expressed understanding. Minimal engagement observed during effortful swallow exercise and pt reported she sometimes does these without thinking about it. Discussed difference between regular swallow and effortful swallow. Suggested pt try exercise with food/liquid to decrease focus on saliva generation and increase focus on muscle engagement. Pt to continue muscle groups during effortful swallow to increase awareness and strength in each individual area and then putting it back together. Pt demonstrated humming exercise with high pitch, which is improvement over previous session. Discussed POC and plan for re- evaluation with MBS and discharge moving forward. Pt expressed understanding and agreement. Diet Recommendations Recommendations Continue Current Diet Liquids Order Thin Diet Order Regular Medication Recommendations As Tolerated Treatment Plan Dysphagia Goals Pt will complete pharyngeal/ laryngeal strengthening exercises in order to restore pharyngeal/laryngeal function and decrease s/s dysphagia during intake. Pt will recall and implement compensatory strategies for swallowing to increase safety during oral intake and decrease risk for aspiration pneumonia.
--- NOTE | 2022-07-21 10:56 | ST.IPDYTX ---
Visit Care Team Role Provider Type Minerva Hearn MD Family Provider Physician Primary Care Provider Specialty: Family Practice Address: [facility], [address], [place], [address] Email: [email or web address] Cheyenne Dunn PA-C Attending Provider Non-Staff Referring Provider Specialty: Medical Address: [address], [address], [place], [address] Email: GREEN MEAT PACKER Dysphagia Treatment GREEN MEAT PACKER Dysphagia Treatment Start: 03/27/22 13:01 Freq: Status: Active Protocol: Document 07/21/22 10:33 ZS (Rec: 07/21/22 10:34 ZS [id number]) Dysphagia Treatment Session Time Visit Start Time 10:35 Visit Stop Time 10:52 Total Visit Minutes 17 Visit Information Visit Number 10 Plan of Care Dates 05/12/2022 - 09/05/2022 Insurance Information Medicare Setting Assessment Location Outpatient Care Visit Type Note Type Treatment Note Next Note Type Next Note Type Treatment Note Patient Information Identification Type Name Subjective Observations Pt arrived late accompanied by her , who was present for the session. She reported completing HEP. Treatment Treatment Activities Reviewed and practiced exercises provided in previous session, providing verbal feedback as needed. Answered pt questions. Provided education regarding measuring progress and POC moving forward. Will get repeat MBS in late August/early September to assess progress and swallow safety. Assessment Assessment of Improvement Tongue protruded minimally with tongue out exercise and pt reported doing 2 at home and working on completing a 3rd. Pt reported tongue started between teeth and then moved back in mouth for swallow. Tongue was not visible to GREEN MEAT PACKER during exercise . Reviewed increasing difficulty with increased protrusion of tongue. Pt expressed understanding. Minimal engagement observed during effortful swallow exercise and pt reported she sometimes does these without thinking about it. Discussed difference between regular swallow and effortful swallow. Suggested pt try exercise in front of mirror for visual feedback and to increase focus on muscle engagement. Pt demonstrated humming exercise with high pitch, which is improvement over previous session. Discussed POC and plan for re- evaluation with MBS in august/early September and discharge moving forward. Pt expressed understanding and agreement. Diet Recommendations Recommendations Continue Current Diet Liquids Order Thin Diet Order Regular Medication Recommendations As Tolerated Treatment Plan Dysphagia Goals Pt will complete pharyngeal/ laryngeal strengthening exercises in order to restore pharyngeal/laryngeal function and decrease s/s dysphagia during intake. Pt will recall and implement compensatory strategies for swallowing to increase safety during oral intake and decrease risk for aspiration pneumonia.
--- NOTE | 2022-08-04 10:49 | ST.IPDYTX ---
Visit Care Team Role Provider Type Minerva Hearn MD Family Provider Physician Primary Care Provider Specialty: Family Practice Address: [facility], [address], [place], [address] Email: [email or web address] Cheyenne Dunn PA-C Attending Provider Non-Staff Referring Provider Specialty: Medical Address: [address], [address], [place], [address] Email: GRAVURE PRESS OPERATOR Dysphagia Treatment GRAVURE PRESS OPERATOR Dysphagia Treatment Start: 03/27/22 13:01 Freq: Status: Active Protocol: Document 08/04/22 10:47 ZS (Rec: 08/04/22 10:49 ZS [id number]) Dysphagia Treatment Session Time Visit Start Time 10:30 Visit Stop Time 10:47 Total Visit Minutes 17 Visit Information Visit Number 11 Plan of Care Dates 05/12/2022 - 09/05/2022 Insurance Information Medicare Setting Assessment Location Outpatient Care Visit Type Note Type Treatment Note Next Note Type Next Note Type Treatment Note Patient Information Identification Type Name Subjective Observations Pt arrived on time accompanied by her , who was present for the session. She reported completing HEP. Treatment Treatment Activities Reviewed and practiced exercises provided in previous session, providing verbal feedback as needed. Answered pt questions. Provided education regarding measuring progress and POC moving forward. Will get repeat MBS in late August/early September to assess progress and swallow safety. Assessment Assessment of Improvement Tongue protruded minimally with tongue out exercise and pt reported doing 2 at home and working on completing a 3rd. Pt reported tongue started between teeth and then moved back in mouth for swallow. Tongue was not visible to GRAVURE PRESS OPERATOR during exercise . Reviewed increasing difficulty with increased protrusion of tongue. Pt expressed understanding. Minimal engagement observed during effortful swallow exercise and pt reported she sometimes does these without thinking about it. Discussed difference between regular swallow and effortful swallow and informed patient effortful swallow is not going to happen without thinking about it due to high engagement of muscles and focus on muscles during swallow. Suggested pt try exercise in front of mirror for visual feedback and to increase focus on muscle engagement. Pt demonstrated humming exercise with high pitch, which is improvement over previous session. Discussed POC and plan for re- evaluation with MBS in august/early September and discharge moving forward. Pt expressed understanding and agreement. Diet Recommendations Recommendations Continue Current Diet Liquids Order Thin Diet Order Regular Medication Recommendations As Tolerated Treatment Plan Dysphagia Goals Pt will complete pharyngeal/ laryngeal strengthening exercises in order to restore pharyngeal/laryngeal function and decrease s/s dysphagia during intake. Pt will recall and implement compensatory strategies for swallowing to increase safety during oral intake and decrease risk for aspiration pneumonia.
--- NOTE | 2022-08-18 11:01 | ST.IPDYTX ---
Visit Care Team Role Provider Type Minerva Hearn MD Family Provider Physician Primary Care Provider Specialty: Family Practice Address: [facility], [address], [place], [address] Email: [email or web address] Cheyenne Dunn PA-C Attending Provider Non-Staff Referring Provider Specialty: Medical Address: [address], [address], [place], [address] Email: HYDRO GENERATION MANAGER Dysphagia Treatment HYDRO GENERATION MANAGER Dysphagia Treatment Start: 03/27/22 13:01 Freq: Status: Active Protocol: Document 08/18/22 10:56 ZS (Rec: 08/18/22 11:00 ZS [id number]) Dysphagia Treatment Session Time Visit Start Time 10:30 Visit Stop Time 10:47 Total Visit Minutes 17 Visit Information Visit Number 12 Plan of Care Dates 08/18/2022 - 11/05/2022 Insurance Information Medicare Setting Assessment Location Outpatient Care Visit Type Note Type Progress Note Next Note Type Next Note Type Treatment Note Patient Information Identification Type Name Subjective Observations Pt arrived on time accompanied by her , who was present for the session. She reported completing HEP. Treatment Treatment Activities Reviewed and practiced exercises provided in previous session, providing verbal feedback as needed. Answered pt questions. Provided education regarding measuring progress and POC moving forward. Recommend repeat MBS in august/early September to assess progress and swallow safety. Assessment Assessment of Improvement Tongue protruded minimally with tongue out exercise and pt reported doing 2 at home and working on completing a 3rd. Pt reported tongue stayed between teeth for swallow. Tongue was not visible to HYDRO GENERATION MANAGER during exercise. Reviewed increasing difficulty with increased protrusion of tongue or increased trials. Pt expressed understanding. Minimal engagement observed during effortful swallow exercise and pt continues to report she sometimes does these without thinking about it. Discussed difference between regular swallow and effortful swallow and informed patient effortful swallow is not going to happen without thinking about it due to high engagement of muscles and focus on muscles during swallow. Suggested pt try exercise in front of mirror for visual feedback and to increase focus on muscle engagement. Additionally, pt to try effortful swallow while 'bearing down' to increase awareness of muscle engagement . Discussed POC and plan for re- evaluation with MBS in late August/early September and discharge moving forward. Pt expressed understanding and agreement. Recommend referral for MBS to assess progress and swallow safety. Pt to contact her PCP for referral. Diet Recommendations Recommendations Continue Current Diet Liquids Order Thin Diet Order Regular Medication Recommendations As Tolerated Treatment Plan Dysphagia Goals Pt will complete pharyngeal/ laryngeal strengthening exercises in order to restore pharyngeal/laryngeal function and decrease s/s dysphagia during intake. Pt will recall and implement compensatory strategies for swallowing to increase safety during oral intake and decrease risk for aspiration pneumonia.
--- NOTE | 2022-08-18 11:01 | ST.OPPOC ---
Physical, Occupational & Speech Therapy At Visit Care Team Role Provider Type Minerva Hearn MD Family Provider Physician Primary Care Provider Address: [facility], [address], [place], [address] Cheyenne Dunn PA-C Attending Provider Non-Staff Referring Provider Address: [address], [address], [place], [address] Speech Pathology Plan of Care Plan of Care Dates 08/18/2022 - 11/05/2022 Referring Provider Cheyenne Dunn Patient History Per recent MBS, the pt is a 80-year-old female with c/o frequent coughing, which she attributes to seasonal allergies and asthma. She was recently hospitalized (Jun 16-2021) and found to have aspiration pneumonia. She attended a modified barium swallow study as part of her follow up from that hospital stay. The patient denies coughing or any other difficulty with oral intake. The results of the MBS indicated the pt presents with reduced anterior hyoid movement, likely contributing to incomplete closure of the laryngeal vestibule. Additionally, the MBS indicated a moderate impairment in the pt's pharyngeal stripping wave, which resulted in diffuse pharyngeal residue with solids, particularly in the R side of the vallecula and pyriform sinus. This was cleared with multiple sips of thin liquid. Head turn to the right decreased pharyngeal residue and also helped clear residue after the swallow. MBS Comments The pt presents with moderate pharyngeal dysphagia secondary to reduced pharyngeal and laryngeal muscular strength, particularly on the right side. Minimal hyolaryngeal anterior excursion resulted in incomplete closure of the laryngeal vestibule and allowed for trace penetration of thin liquid and vallecular residue, silent in nature and without aspiration . Pharyngeal stripping wave was minimally present. Significant residue pooled on the right side greater than left in both vallecula and pyriform sinuses and required multiple sips of water to clear. Head turn to right side was effective in reducing pooling to trace to mild amounts and also assisted in clearing residue. The pt is at mild risk of aspiration if head turn to right is used with all swallows. Risk increased without compensatory strategy. Narrowing of the distal esophagus was noted by Radiologist as was delayed passage of solids and a 13mm barium tablet. GI consultation is recommended. Solid Recommendations Regular Recommended Referrals GI Consult Short Term Goals 1. The pt will use compensatory swallow strategies to reduce pharyngeal residue and risk of aspiration. 2. The pt will perform exercises to increase strength, coordination and ROM of musculature to reduce pharyngeal residue and risk of aspiration. Short-term Goals Pt will complete pharyngeal/laryngeal strengthening exercises in order to restore pharyngeal/laryngeal function and decrease s/s dysphagia during intake. Pt will recall and implement compensatory strategies for swallowing to increase safety during oral intake and decrease risk for aspiration pneumonia. Long-term Goals Pt will safely tolerate least restrictive diet without s/s aspiration or penetration. Comment: Recommend referral for repeat MBS to assess progress and swallow safety. Electronically Signed by: DOROTHY Song 08/18/22 1740 If you are in agreement with this Plan of Care, please return a signed and dated copy. I have reviewed this Plan of Care and certify that the skilled therapy services above are required to meet the patient?s needs. Physician Signature Date Printed Name and Credentials Clinical Instructor Signature Printed Name and Credentials
--- NOTE | 2022-09-01 11:30 | ST.IPDYTX ---
Visit Care Team Role Provider Type Minerva Hearn MD Family Provider Physician Primary Care Provider Specialty: Family Practice Address: [facility], [address], [place], [address] Email: [email or web address] Cheyenne Dunn PA-C Attending Provider Non-Staff Referring Provider Specialty: Medical Address: [address], [address], [place], [address] Email: DESKTOP PUBLISHING SPECIALIST Dysphagia Treatment DESKTOP PUBLISHING SPECIALIST Dysphagia Treatment Start: 03/27/22 13:01 Freq: Status: Active Protocol: Document 09/01/22 11:30 ZS (Rec: 09/02/22 09:16 ZS [id number]) Dysphagia Treatment Session Time Visit Start Time 10:30 Visit Stop Time 10:48 Total Visit Minutes 18 Visit Information Visit Number 13 Plan of Care Dates 08/18/2022 - 11/05/2022 Insurance Information Medicare Setting Assessment Location Outpatient Care Visit Type Note Type Discharge Summary Patient Information Identification Type Name Subjective Observations Pt arrived on time accompanied by her , who was present for the session. She reported completing HEP. Treatment Treatment Activities Reviewed and practiced exercises provided in previous session, providing verbal feedback as needed. Assessed swallow safety with EAT-10 given pt does not want to complete repeat MBS. Discussed discharge given pt's independence with HEP and progress with swallow safety at home. Assessment Assessment of Improvement Tongue protruded minimally with tongue out exercise, though increased protrusion noted over previous session. Pt reported tongue stayed between teeth for swallow. Tongue was not visible to DESKTOP PUBLISHING SPECIALIST during exercise. Reviewed increasing difficulty with increased protrusion of tongue or increased trials. Pt expressed understanding. Minimal engagement observed during effortful swallow exercise and pt continues to report she sometimes does these without thinking about it. Discussed difference between regular swallow and effortful swallow and informed patient effortful swallow is not going to happen without thinking about it due to high engagement of muscles and focus on muscles during swallow. Suggested pt try exercise in front of mirror for visual feedback and to increase focus on muscle engagement. Pt reported she had not done this yet, but will do this at home. Additionally, pt to try effortful swallow while ' bearing down' to increase awareness of muscle engagement . Pt reported she is not interested in getting repeat MBS. Provided education regarding purpose of repeat MBS and inability to assess silent aspiration without this assessment. Pt expressed agreement and maintained she does not want to complete repeat MBS. Completed EAT-10 to assess swallow safety at home and results placed Katie's score at 0, indicating low risk for overt aspiration at home. Unable to assess silent aspiration, which was present at initial MBS evaluation. Katie is independent in HEP and has reported improvement in throat clearing and coughing while eating and drinking at home. She continues to implement safe swallow strategies independently. Recommend discharge from speech therapy at this time. Provided education on aspiration pneumonia and recommend pt return for MBS if this becomes a problem or concerns arise. Pt expressed understanding. Diet Recommendations Recommendations Continue Current Diet Liquids Order Thin Diet Order Regular Medication Recommendations As Tolerated Treatment Plan Appropriate for Continued Therapy No Therapy Recommendations Discharging from speech therapy due to independence in HEP and use of safe swallow strategies. She is not interested in repeat MBS to assess for silent aspiration, despite education provided. Dysphagia Goals Pt will complete pharyngeal/ laryngeal strengthening exercises in order to restore pharyngeal/laryngeal function and decrease s/s dysphagia during intake. Pt will recall and implement compensatory strategies for swallowing to increase safety during oral intake and decrease risk for aspiration pneumonia.
--- NOTE | 2022-09-02 09:16 | ST.IPDYTX ---
Visit Care Team Role Provider Type Minerva Hearn MD Family Provider Physician Primary Care Provider Specialty: Family Practice Address: [facility] [place]note 2[facility], [address], [place], [address] Email: [email or web address] Cheyenne Dunn PA-C Attending Provider Non-Staff Referring Provider Specialty: Medical Address: [address], [address], [place], [address] Email: CHARGER OPERATOR HELPER Dysphagia Treatment CHARGER OPERATOR HELPER Dysphagia Treatment Start: 03/27/22 13:01 Freq: Status: Active Protocol: Document 09/02/22 09:09 LOBO (Rec: 09/02/22 09:16 ZS [id number]) Dysphagia Treatment Session Time Visit Start Time 10:30 Visit Stop Time 10:48 Total Visit Minutes 18 Visit Information Visit Number 13 Plan of Care Dates 08/18/2022 - 11/05/2022 Insurance Information Medicare Setting Assessment Location Outpatient Care Visit Type Note Type Discharge Summary Patient Information Identification Type Name Subjective Observations Pt arrived on time accompanied by her , who was present for the session. She reported completing HEP. Treatment Treatment Activities Reviewed and practiced exercises provided in previous session, providing verbal feedback as needed. Assessed swallow safety with EAT-10 given pt does not want to complete repeat MBS. Discussed discharge given pt's independence with HEP and progress with swallow safety at home. Assessment Assessment of Improvement Tongue protruded minimally with tongue out exercise, though increased protrusion noted over previous session. Pt reported tongue stayed between teeth for swallow. Tongue was not visible to CHARGER OPERATOR HELPER during exercise. Reviewed increasing difficulty with increased protrusion of tongue or increased trials. Pt expressed understanding. Minimal engagement observed during effortful swallow exercise and pt continues to report she sometimes does these without thinking about it. Discussed difference between regular swallow and effortful swallow and informed patient effortful swallow is not going to happen without thinking about it due to high engagement of muscles and focus on muscles during swallow. Suggested pt try exercise in front of mirror for visual feedback and to increase focus on muscle engagement. Pt reported she had not done this yet, but will do this at home. Additionally, pt to try effortful swallow while ' bearing down' to increase awareness of muscle engagement . Pt reported she is not interested in getting repeat MBS. Provided education regarding purpose of repeat MBS and inability to assess silent aspiration without this assessment. Pt expressed agreement and maintained she does not want to complete repeat MBS. Completed EAT-10 to assess swallow safety at home and results placed Katie's score at 0, indicating low risk for overt aspiration at home. Unable to assess silent aspiration, which was present at initial MBS evaluation. Katie is independent in HEP and has reported improvement in throat clearing and coughing while eating and drinking at home. She continues to implement safe swallow strategies independently. Recommend discharge from speech therapy at this time. Provided education on aspiration pneumonia and recommend pt return for MBS if this becomes a problem or concerns arise. Pt expressed understanding. Diet Recommendations Recommendations Continue Current Diet Liquids Order Thin Diet Order Regular Medication Recommendations As Tolerated Treatment Plan Appropriate for Continued Therapy No Therapy Recommendations Discharging from speech therapy due to independence in HEP and use of safe swallow strategies. She is not interested in repeat MBS to assess for silent aspiration, despite education provided. Dysphagia Goals Pt will complete pharyngeal/ laryngeal strengthening exercises in order to restore pharyngeal/laryngeal function and decrease s/s dysphagia during intake. Pt will recall and implement compensatory strategies for swallowing to increase safety during oral intake and decrease risk for aspiration pneumonia.
== END 2022-09-02 11:26 | disposition home or self-care (01) ==
LOC: SP 10:30
PROVIDERS: Family Provider Family Medicine; PCP Family Medicine; Referring Provider Physician Assistant; Visit Provider Physician Assistant
DX: R13.10 Dysphagia, unspecified (principal)
CPT/HCPCS: 92526; 92610

== ENCOUNTER → 2022-12-29 08:11 | Outpatient (CLI) | payer MEDICARE, OTHER, SELFPAY ==
[2021-06-17 12:29] VITALS: BMI 24.0
--- NOTE | 2022-12-29 08:12 | DI.MG.S_ITS ---
BILATERAL DIGITAL SCREENING MAMMOGRAM 3D/2D WITH CAD: 12/29/2022 CLINICAL: Routine screening. Family history of breast cancer. Comparison is made to exams dated: 12/28/2021 mammogram, 10/10/2020 mammogram, and 07/02/2019 mammogram - [facility]. Both breasts are heterogeneously dense, which may obscure small masses (category c / 51-75% glandular tissue). Current study was also evaluated with a Computer Aided Detection (CAD) system. No significant masses, calcifications, or other findings are seen in either breast. There has been no significant interval change. IMPRESSION: NEGATIVE There is no mammographic evidence of malignancy. A 1 year screening mammogram is recommended. Based on the Tyrer Cuzick model (a risk assessment model) the patient's lifetime risk is 2.1% and her 10 year risk is 0.0%. According to the ACR, ACS, and NCCN guidelines, an annual breast MRI exam along with mammogram is recommended if the patient's lifetime risk is 20% or greater. This exam was interpreted at Station ID: [id number]. NOTE: For mammograms, a report in lay terms will be sent to the patient. Approximately 15% of breast malignancies will not be visualized mammographically. In the management of a palpable breast mass, a negative mammogram must not discourage biopsy of a clinically suspicious lesion. Electronically Signed By: Jeff pennington/linda:12/29/2022 09:14:13 letter sent: Normal Exam ACR BI-RADS Category 1: Negative [id number]
== END ==
PROVIDERS: Family Provider Family Medicine; PCP Family Medicine; Referring Provider Family Medicine; Visit Provider Family Medicine
DX: Z12.31 Encounter for screening mammogram for malignant neoplasm of breast (principal); Z80.3 Family history of malignant neoplasm of breast
CPT/HCPCS: 77063; 77067

== ENCOUNTER → 2023-05-04 11:25 | Outpatient (CLI) | payer MEDICARE, OTHER, SELFPAY ==
[2021-06-17 12:29] VITALS: BMI 24.0
--- NOTE | 2023-05-04 11:28 | DI.RAD.S_ITS ---
PROCEDURE: XR KNEE RT 3V INDICATIONS: Arthritic pain TECHNIQUE: 3 views of the knee were acquired. COMPARISON: None. FINDINGS: Bones: No fractures or dislocations. There is severe femorotibial compartment narrowing and small tricompartmental osteophytes. Soft tissues: No joint effusion. No suspicious soft tissue calcifications. IMPRESSION: Moderate to severe osteoarthritis of the right knee. Dictated by: Kalyn Burton M.D. on 05/04/2023 at 12:39 Approved by: Kalyn Burton M.D. on 05/04/2023 at 12:40
== END ==
PROVIDERS: Family Provider Family Medicine; PCP Family Medicine; Referring Provider Family Medicine; Visit Provider Family Medicine
DX: M25.50 Pain in unspecified joint (principal); M17.11 Unilateral primary osteoarthritis, right knee
CPT/HCPCS: 73562

== ENCOUNTER → 2023-05-28 14:40 | Outpatient (CLI) | payer MEDICARE, OTHER, SELFPAY ==
[2021-06-17 12:29] VITALS: BMI 24.0
[2023-05-28 15:32] LABS: Influenza A - CEPHEID Flu A NEGATIVE (NEGATIVE); Influenza B - CEPHEID Flu B NEGATIVE (NEGATIVE); Respiratory Syncytial Virus Negative (Negative)
[2023-05-28 15:47] LABS: COVID-19 CEPHEID 4-PLEX PCR Negative (Negative)
== END ==
PROVIDERS: Family Provider Family Medicine; PCP Family Medicine; Visit Provider Student in an Organized Health Care Education/Training Program
DX: R05.1 Acute cough (principal)
CPT/HCPCS: 0241U

== ENCOUNTER → 2023-05-28 15:02 | Outpatient (CLI) | payer MEDICARE, OTHER, SELFPAY ==
[2021-06-17 12:29] VITALS: BMI 24.0
--- NOTE | 2023-05-28 15:05 | DI.RAD.S_ITS ---
PROCEDURE: XR CHEST 2V INDICATIONS: L mid and lower lung rhonchi suspect PNA TECHNIQUE: 2 views of the chest were acquired. COMPARISON: [facility], CR, XR CHEST 2V, 06/16/2021, 20:24. FINDINGS: Surgical changes and devices: None. Lungs and pleura: Lungs are clear. No pleural effusions or pneumothorax. Nodular right upper lobe opacities are unchanged compared to 06/16/2021. Mediastinum: Mediastinal contours are normal. Heart size is enlarged. Bones and chest wall: No suspicious bony abnormalities. Soft tissues appear unremarkable. IMPRESSION: No acute cardiopulmonary abnormality is seen. Dictated by: Peter Benton M.D. on 05/28/2023 at 16:38 Approved by: Peter Benton M.D. on 05/28/2023 at 16:39
== END ==
PROVIDERS: Family Provider Family Medicine; PCP Family Medicine; Referring Provider Student in an Organized Health Care Education/Training Program; Visit Provider Student in an Organized Health Care Education/Training Program
DX: R09.89 Other specified symptoms and signs involving the circulatory and respiratory systems (principal); R05.1 Acute cough
CPT/HCPCS: 0241U; 71046

== ENCOUNTER → 2023-07-29 10:19 | Outpatient (CLI) | payer MEDICARE, OTHER, SELFPAY ==
[2021-06-17 12:29] VITALS: BMI 24.0
[2023-07-29 11:35] LABS: Add Manual Diff / Slide Review NO; Basophils Absolute Auto 100 /uL (0-100); Basophils Percent Auto 1.1 % (0-2); Eosinophils Absolute Auto 200 /uL (0-450); Hematocrit 38.9 % (36-46); Hemoglobin 13.1 g/dL (12.0-16.0); Lymphocytes Absolute Auto 1400 /uL (1100-4500); Lymphocytes Percent Auto 20.7 % (25-40); Mean Corpuscular HGB Conc 33.7 % (30-36); Mean Corpuscular Hemoglobin 31.2 PG (26-34); Mean Corpuscular Volume 92.3 fL (80-100); Monocytes Absolute Auto 700 /uL (0-900); Neutrophils Absolute Auto 4400 /uL (1500-7000); Neutrophils Percent Auto 65.2 % (50-75); Platelet Count 353 X10^3/uL (150-400); Red Blood Cell Count 4.22 X10^6/uL (4.0-5.2); Red Cell Distribution Width 14.5 % (11.6-14.8); White Blood Cell Count 6.7 X10^3/uL (4.5-11.0)
[2023-07-29 11:40] LABS: Hemoglobin A1C% w Est Avg Glu 5.7 % (4.0-6.0)
[2023-07-29 11:43] LABS: Alanine Aminotransferase 15 IU/L (<35); Albumin 4.3 g/dL (3.5-5.0); Albumin Globulin Ratio 1.4 (1.0-2.8); Alkaline Phosphatase 82 U/L (38-126); Aspartate Aminotransferase 23 IU/L (14-36); BUN Creatinine Ratio 30.9 (6-22); Bilirubin Total 0.8 mg/dL (0.2-1.3); Blood Urea Nitrogen 17 mg/dL (7-17); Calcium 9.5 mg/dL (8.4-10.2); Carbon Dioxide 24 mmol/L (22-32); Chloride 100 mmol/L (98-107); Estimated Glomerular Filt Rate > 60 mL/min (>60); Globulin 3.1 g/dL (1.7-4.1); Glucose 99 mg/dL (80-110); HEMOLYSIS 34 (0-50); Potassium 4.1 mmol/L (3.4-5.1); Sodium 135 mmol/L (137-145); Total Protein 7.4 g/dL (6.3-8.2)
[2023-07-29 18:32] LABS: Creatinine Urine Random 29.2 mg/dL
[2023-07-29 18:37] LABS: Microalbumin Urine Random < 0.6 mg/dL (0-1.6)
== END ==
PROVIDERS: Family Provider Family Medicine; PCP Family Medicine; Referring Provider Family Medicine; Visit Provider Family Medicine
DX: I10 Essential (primary) hypertension (principal)
CPT/HCPCS: 36415; 80053; 82043; 82570; 83036; 85025; 93005

== ENCOUNTER 2023-09-30 09:02 | Day surgery (SDC) | payer MEDICARE, OTHER, SELFPAY ==
[2021-06-17 12:29] VITALS: BMI 24.0
[2023-09-22 09:40] VITALS: BMI 25.5
[2023-09-30] VITALS (18 sets, daily range): BP systolic 118–165; BP diastolic 52–80; PULSE 62–96; RESP 8–25; TEMP 36–37.5; O2SAT 92–99; BMI 24.4; BMI 27.7
--- NOTE | 2023-09-30 06:00 | DI.RAD.S_ITS ---
PROCEDURE: XR KNEE RT 1TO2V INDICATIONS: TKA TECHNIQUE: 2 view(s) of the knee acquired. COMPARISON: [facility], , XR KNEE RT 3V, 05/04/2023, 11:31. FINDINGS: Bones: Patient is status post knee joint arthroplasty. Hardware components are in expected positions. Visualized bony structures are intact. Soft tissues: Overlying postoperative changes are noted. IMPRESSION: Expected post-operative appearance of a knee arthroplasty. Dictated by: Callum Ortiz M.D. on 09/30/2023 at 15:33 Approved by: Callum Ortiz M.D. on 09/30/2023 at 15:34
[2023-09-30] MEDS: ACETAMINOPHEN 325 MG TABLET 975 MG PO (09:47)
[2023-09-30] MEDS: CELECOXIB 200 MG CAPSULE 400 MG PO (09:48)
[2023-09-30] MEDS: LACTATED RINGERS 1,000 ML 42 ML IV ×2 (10:09→13:21)
--- NOTE | 2023-09-30 11:22 | PM.PREOP ---
Pre-operative Note Interval Note History & Physical reviewed/Exam performed by Physician: Yes Changes to H&P: No
--- NOTE | 2023-09-30 11:53 | P.OP_ITS ---
Operative Date/Time/Diagnoses Date of procedure: 09/30/23 Time of procedure: 12:00 Pre-op diagnosis: Right knee arthritis Post-op diagnosis: same Procedure & Clinicians Procedure: Total knee arthroplasty right CPT code 99198 Robotic assisted surgery, computer navigation [id number], [id number] Same procedure as scheduled: Yes Indications: The patient is a 83-year-old female with end-stage krjo-un-gkbz knee arthritis. The patient has a significant right knee valgus knee arthritis. They have failed conservative treatment with activity modifications, injections, physical therapy and bracing. They has been indicated for total knee replacement. The risks and benefits of the procedure have been discussed with the patient even opportunity to ask questions. The risks of surgery include but are not limited to infection, malunion, nonunion, fracture, loosening, persistence of pain, damage to nerves and blood vessels, need for additional procedures, DVT, PE, cardiopulmonary complications and . The patient expressed a thorough understanding of the risks and benefits of surgery and has elected to proceed. Consent was signed in the office. During the operation the services of physician ssn/ssbn assistant navigator were medically indicated and necessary to provide the exposure of the operative site for the surgical procedure and to maintain the limb in a proper position to carry out the procedure safely and efficiently. Without a qualified occupational therapist assistant being present this would extend the operative procedure and would have made the procedure more technically difficult to perform. The ssn/ssbn assistant navigator was medically necessary for the proper positioning, retraction and manipulation of the limb, proper exposure, and manipulation of the tissue for implantation implants and closure. Surgeon: Suzan Rousseau Technical Inspector: Yuan Metz Anesthesia Type: General, Spinal, Peripheral nerve block and Local (Exparel 266 mg, 20 cc) Operative Notes Findings: End-stage valgus arthritis right knee tricompartmental arthritis large osteophytes valgus arthritis. Eburnated bone lateral femoral condyle. Full- thickness cartilage loss. Closure Type: primary Specimen(s): none sent Prosthetic devices, grafts, tissues, transplants, or devices: Leonard and nephew journey IIBCS Femur cobalt chromium size 4 Tibia size 3 Poly 11 mm Patella 32 x 7.5 Estimated Blood Loss (mL): 100 Blood products transfused: none Tourniquet time (min): 90 Procedure in detail: Patient was seen in the preoperative area where the patient and site of surgery were identified in the operative knee was marked informed consent confirmed. This was the right knee. Patient received the appropriate preoperative antibiotics this was 2 g of Ancef. And other preoperative medications and was taken to the operating room placed on operating table in the supine position. Spinal anesthetic were administered. The operative extremity was then prepped and draped in the standard sterile fashion with a nonsterile tourniquet high on the thigh. Patient was placed on the green foam bolsters. A lateral post was placed at the level of the proximal thigh /trochanter area as a lateral post. Formal time-out procedure was performed confirming the patient's side and site of surgery and administration of appropriate preoperative antibiotics and implants were in the room accounted for. All were in agreement. Patient received a preoperative dose of tranexamic acid and then a 2nd dose at tourniquet release Patient was prepped and draped in the standard sterile fashion and the foot was placed into the leg fink. This was taken into high flexion and the incision was marked out over the anterior knee to the level of the medial tubercle tubercle. The Esmarch was then used for exsanguination and the tourniquet was inflated to 250 mmHg. Was made through the skin and subcutaneous tissue in high flexion this was then brought down into 30? of flexion for the medial parapatellar arthrotomy. A marker pen was used to holland the arthrotomy site for later repair. Joint fluid was evacuated. The anterior osteophytes and soft tissues were removed. Routine medial release was initially made along the medial proximal tibia with Bovie. The patella was 1st cut using the saw sized and prepped and then subluxed throughout the case and protected. The leg was then taken into extension and the patella was everted and the patella was cut to accommodate the patellar button. This was sized to a 32 mm button for a 7.5 mm thickness to recreate the original dimensions of the patella. Poly was removed and the protector replaced and the patella was subluxed and the knee was taken back up into flexion and attention was returned to the femur. Then the rotational landmarks of Whitesides line and the trans epicondylar axis were marked on the femur with electrocautery. ACL and PCL were released. Then the Cori robotic pins were placed into the femur and tibia tracker arrays were set up. Patient had quite soft bone at her femoral condyles and metaphysis. Better bone up along the shaft. Extreme care was taken when placing the pins. Landmarks were established and the robotic planning was commenced. Initial alignment was 6? of valgus and IT band was tight in extension. A 15 blade was used to pie crust IT band. The robotic Plan was developed and improved and adjusted as necessary to create a balanced knee. Initial alignment was 6 degree valgus. Plan correction was to 0?. External rotation of the femur was taken to 6?. 1 degree of valgus was placed in the femur to help with balancing. 1-2 mm gaps were obtained in flexion and extension. Planning for the 10 mm poly. Plan was satisfactory the bur was used to remove the distal femur then attention was turned to the tibia this was prepared. The knee was taken to extension and the extension alignment block was checked full extension was achieved. Remainder of the menisci were removed. Posterior knee was injected with the local mixture. The knee was then flexed back up and attention returned to the distal femur. And then the 5 in 1 cutting block was applied complete the femur cuts. The trials were placed. And the femoral notch was cut a standard fashion using Reamer then slap hammer. The knee was trialed and the checked. Knee was balanced in flexion extension. Range of motion 0-135 degrees was obtained. The rotation femoral trial was marked Bovie on the bone and checked with a long tiarra. The tibia was then finished with a drill and flange cut and then The trial implants were removed. Then in extension the posterior capsule was injected with a mixture of 40 mL of 0.25% Marcaine and 20 mL of Exparel care to avoid excessive injection posterior laterally. The remainder of this was saved for the capsule and subcutaneous tissue and placed during cement curing. The wound and bone was irrigated with pulsatile lavage. This was then dried with a sponge. The components were verified and opened and the cement was mixed. Cement was applied to the components and then to the bone then the tibia was cemented in place 1st followed by the femur then the patella. Excess cement was removed. With care looking around the back of the knee. Remainder of the injection was injected around the capsule. trial poly was placed back in the leg was placed into extension for the patellar cementing. After this was cured approximately 15 minutes later and the dilute Betadine solution was placed for at least 3 minutes in the wound this was then irrigated out and the final poly was placed. This was a eleven mm poly. Final alignment was achieved as planned. With full range of motion 0-135. This was stable with the 11 mm poly. The tourniquet was released hemostasis was achieved. Final 1g of tranexamic acid was given IV at the time of tourniquet release. The capsule was closed with 1. Ethibond suture. Followed by a running Quill stitch. Subcutaneous layer was closed with 3-0 Vicryl suture. Skin was closed with a running V lock suture Stratafix Monocryl type suture and Dermabond. An Aquacel dressing was placed . An Flavio wrap was applied. Anesthetic was terminated the patient was woken from anesthesia and taken to recovery room in good condition. There no immediate complications from this procedure. The patient will be maintained on a standard total knee replacement protocol with weight-bearing as tolerated. Complications: none Post-operative Condition: stable Disposition: PACU Plan for aftercare: Weightbear as tolerated. Range of motion as tolerated. Discharge home when safe. Follow up in 10-14 days with physician occupational therapist assistant. And then 6 weeks with surgeon. We will start physical therapy within 1 week. Aspirin 81 mg b.i.d. for DVT prophylaxis.
--- NOTE | 2023-09-30 11:59 | SUR.PREOP ---
Block start time [1151] . Monitoring initiated and maintained throughout procedure. Oxygen and medications given per anesthesiologist instructions. Patient remained stable throughout procedure, no adverse reactions noted. Block end time [1156 ].
[2023-09-30] MEDS: TRANEXAMIC ACID 1,000 MG VIAL 1000 MG INJ ×2 (12:24→14:13)
[2023-09-30] MEDS: CEFAZOLIN 2 GM/100 ML PREMIX 100 ML IV ×2 (12:27→21:14)
--- NOTE | 2023-09-30 12:41 | SUR.OPER ---
Supine on padded OR bed. Pillow under head, arms secured on padded armboards <90 degree abduction. Safety belt across torso. Non-operative leg secured with tape over blanket over lower leg. Operative leg secured in DeMayo/Oral/Nathe positioner. Foam padded brace at thigh of operative leg.
[2023-09-30] MEDS: BUPIVACAINE LIPOSOME 266 MG/20 ML VIAL INJ (12:48)
[2023-09-30] MEDS: BUPIVACAINE 0.25% (PF) 60 ML, EPINEPHrine 0.3 MG INJ (12:48)
[2023-09-30] MEDS: OXYCODONE IR 5 MG TABLET PO (15:06)
[2023-09-30] MEDS: hydrOXYzine 50 MG/ML INJ 25 MG IM (15:07)
[2023-09-30] MEDS: HYDROMORPHONE 1 MG INJ IV (15:23)
--- NOTE | 2023-09-30 15:39 | SUR.PHASEI ---
Report given to FÁTIMA Tomlinson
[2023-09-30] MEDS: IBUPROFEN 400 MG TABLET PO ×2 (17:53→21:13)
[2023-09-30] MEDS: ACETAMINOPHEN 325 MG TABLET 650 MG PO ×2 (17:54→21:17)
--- NOTE | 2023-09-30 18:17 | PC.NURSE ---
Pt to room 216 via bed from PACU. Pt is drowsy but oriented x 3. Denies nausea or shortness of breath. States she is having pain to her right knee 09/15. IV infusing as ordered. Ice pack to knee. Aquacell dsg with leslie wrap in place. Able to wiggle toes and move feet. SCD's and an running. Bed alarm on for safety. Pt agrees to call for assistance as needed and to not get up without assistance. Pt oriented to room, call light, bed controls, and tv controls.
[2023-09-30] MEDS: LACTATED RINGERS 1,000 ML 100 ML IV (21:12)
[2023-09-30] MEDS: ASPIRIN EC 81 MG TABLET PO (21:14)
[2023-09-30] MEDS: DOCUSATE 100 MG CAPSULE PO (21:15)
[2023-09-30] MEDS: ATORVASTATIN 20 MG TABLET 10 MG PO (21:15)
[2023-10-01] MEDS: IBUPROFEN 400 MG TABLET PO ×3 (00:49→09:00)
[2023-10-01] MEDS: CEFAZOLIN 2 GM/100 ML PREMIX 100 ML IV (03:53)
[2023-10-01] MEDS: ACETAMINOPHEN 325 MG TABLET 650 MG PO (03:53)
[2023-10-01 05:06] LABS: Hematocrit 35.9 % (36-46); Hemoglobin 11.9 g/dL (12.0-16.0)
[2023-10-01 07:46] VITALS: BP 151/64; PULSE 68; RESP 19; TEMP 36.7; O2SAT 97
--- NOTE | 2023-10-01 08:32 | P.DS_ITS ---
History of Present Illness History of Present Illness Date Patient Seen: 10/01/23 Time Patient Seen: 08:32 Chief complaint: Right Knee Total Arthroplasty Narrative: Procedure: Total knee arthroplasty right CPT code 67291 Robotic assisted surgery, computer navigation [id number], 60034 Same procedure as scheduled: Yes Indications: The patient is a 83-year-old female with end-stage cwjw-oo-msiu knee arthritis. The patient has a significant right knee valgus knee arthritis. They have failed conservative treatment with activity modifications, injections, physical therapy and bracing. They has been indicated for total knee replacement. The risks and benefits of the procedure have been discussed with the patient even opportunity to ask questions. The risks of surgery include but are not limited to infection, malunion, nonunion, fracture, loosening, persistence of pain, damage to nerves and blood vessels, need for additional procedures, DVT, PE, cardiopulmonary complications and . The patient expressed a thorough understanding of the risks and benefits of surgery and has elected to proceed. Consent was signed in the office. During the operation the services of physician director medical surgical were medically indicated and necessary to provide the exposure of the operative site for the surgical procedure and to maintain the limb in a proper position to carry out the procedure safely and efficiently. Without a qualified geriatric nursing assistant being present this would extend the operative procedure and would have made the procedure more technically difficult to perform. The director medical surgical was medically necessary for the proper positioning, retraction and manipulation of the limb, proper exposure, and manipulation of the tissue for implantation implants and closure. Surgeon: Szuan Rousseau Assistant [employer] Manager: Yuan Metz Anesthesia Type: General, Spinal, Peripheral nerve block and Local (Exparel 266 mg, 20 cc) Operative Notes Findings: End-stage valgus arthritis right knee tricompartmental arthritis large osteophytes valgus arthritis. Eburnated bone lateral femoral condyle. Full- thickness cartilage loss. Closure Type: primary Specimen(s): none sent Prosthetic devices, grafts, tissues, transplants, or devices: Leonard and nephew journey IIBCS Femur cobalt chromium size 4 Tibia size 3 Poly 11 mm Patella 32 x 7.5 Estimated Blood Loss (mL): 100 Blood products transfused: none Tourniquet time (min): 90 Discharge Providers Provider Date of admission: 09/30/23 Discharge Date: 10/01/23 Primary care physician: Minerva Hearn MD Consults: 09/30/23 06:00 Consult to Anesthesiology Routine Comment: Consulting Provider: Anesthesiologist Reason for consultation: Regional block for post operative pain control 09/30/23 16:13 Consult to Discharge Planning Routine Comment: Consult to Occupational Therapy Evaluate & Treat Comment: Physician Instructions: Evaluate and treat Consult to Physical Therapy Evaluate & Treat Comment: wants to go home today Physician Instructions: postop TKA protocol Discharge provider: Yuan Metz PA-C Summary Hospital Course Discharge Diagnosis: Post right knee arthroplasty Hospital Course: Multimodal pain control. Physical therapy. Status at Discharge Cognitive/behavioral status at discharge: oriented Functional status at discharge: uses cane/walker Overall status at discharge: patient is back to baseline Time Spent with Patient Time spent: Less than 30 minutes Exam Vital Signs (past 8 hours): - 10/01/23 07:46 Temperature 98.0 F Pulse Rate 68 Respiratory Rate 19 Blood Pressure 151/64 H Pulse Oximetry 97 Oxygen Flow Rate 0 Fraction of Inspired Oxygen 21 SaO2/FiO2 Ratio 447 Oxygen Delivery Method Room Air Oxygen Flow Rate 0 Narrative Exam Narrative: Patient is found sitting up comfortably in her bed eating breakfast. Says that her pain has been minimal and controlled with oral medications. She has been able to get out of bed and use the toilet with assistance. Denies any fever chills nausea or vomiting. Denies any numbness or tingling into left or right lower extremities. No tenderness to palpation of the posterior thigh or calf. Dressing appears to be well-maintained clean and dry. Sensation to light touch grossly intact in the right lower extremity. Pedal pulses intact. Able to dorsiflex and plantar flex against resistance at the ankles bilaterally. Const General: cooperative and comfortable Resp Effort & Inspection: normal respiratory effort and able to speak in complete sentences Objective Labs 10/01/23 04:45 Labs: Laboratory Results - last 24 hr 10/01/23 04:45 Hgb 11.9 L Hct 35.9 L PFSH Medical History (Updated 09/22/23 @ 10:22 by Samantha Thapa RN) Easy bruisability Arthritis HLD (hyperlipidemia) Hypoxia Pneumonia Rosacea (~1999) Asthma (~194) Seasonal allergies (~194) Hypertension (~2001) Surgical History (Updated 09/22/23 @ 10:26 by Samantha Thapa RN) History of gynecologic surgery Hx of bilateral cataract extraction Hx of tonsillectomy Hx of colonoscopy (08/27/18) Anesthesia History of section (~1965) History of section (~1960) Family History Father No problems noted. Mother No problems noted. Grandfather No problems noted. Grandmother No problems noted. Social History marital status: number of children: 2 household members: spouse lives independently: Yes caregiver/support person: No housing: house Smoking Status: Never smoker second hand exposure: No alcohol intake: current substance use type: does not use Discharge Assessment & Plan Assessment and Plan Assessment: Status post right knee total arthroplasty Plan of Treatment: Discharged home. Patient has already received postoperative medications instructed in their use to use as directed. Patient will continue with aspirin 81 mg twice a day for 6 weeks for VTE prophylaxis. Patient will start physical therapy in the next 7-10 days. Patient will follow up in clinic in 2 weeks for wound check. Discharge Plan Discharge Plan Patient Disposition: Home Provider Discharge Comment: DC pending PT approval Discharge orders & Medications Discharge Orders: Discharge (Order); Ordered 10/01/23 Ordered By: Yuan Metz Prescriptions: New aspirin 81 mg Tablet,Delayed Release (Dr/Ec) 81 mg PO BID Qty: 90 0RF Continued metronidazole 0.75 % cream 1 applic topical BID epinephrine 0.15 mg/0.15 mL auto-injector 0.15 ml SUBCUT PRN PRN (Reason: Allergic reaction to seafood) amlodipine 10 mg tablet See Rx Instructions .ROUTE .COMPLEX Qty: 90 3RF Dose Instruction: TAKE ONE TABLET BY MOUTH DAILY Rx Instructions: TAKE ONE TABLET BY MOUTH DAILY lisinopril 40 mg tablet See Rx Instructions .ROUTE .COMPLEX Qty: 90 3RF Dose Instruction: TAKE ONE TABLET BY MOUTH DAILY Rx Instructions: TAKE ONE TABLET BY MOUTH DAILY atorvastatin 10 mg tablet See Rx Instructions .ROUTE .COMPLEX Qty: 90 2RF Dose Instruction: TAKE ONE TABLET BY MOUTH DAILY Rx Instructions: TAKE ONE TABLET BY MOUTH DAILY tolterodine 4 mg capsule,extended release 24hr 4 mg PO DAILY Qty: 90 0RF atenolol 50 mg tablet 50 mg PO DAILY Qty: 90 0RF Trelegy Ellipta 200-62.5-25 mcg Blister With Device 1 inh INHALATION DAILY naproxen sodium [Aleve] 220 mg Capsule 220 mg PO Q8H PRN (Reason: Pain) cholecalciferol (vitamin D3) [Vitamin D3] 1,000 unit Capsule 1,000 unit PO DAILY Follow up/Referrals: Minerva Hearn MD [Primary Care Provider] - Diet/Activity/Treatments Diet: Diet as Tolerated Activity: Weightbear as tolerated. Knee range of motion as tolerated. Other treatments: Dressing/Wound care: -Remove the Flavio wrap 48 hours after surgery. -Keep Aquacel dressing in place until postoperative follow-up office visit. -you may see some drainage on the bandage, this is ok. If it is leaking or saturated, then the dressing can be changed to clean gauze or a clean surgical dressing from a pharmacy or reinforced with additional gauze and paper tape or dressings over the top. Otherwise, just keep dressing in place until follow up. -Okay to shower. Keep wound out of direct water stream. No soaking or submerging until all the scabs fall off (approximately 6 weeks). -Please call the office if dressing becomes significantly wet, soiled, or saturated. Activities: -Weight-bearing as tolerated. Use front wheeled walker, and progress to cane when safe. -Continue with home exercises as directed by your physical therapist. -Elevate ?toes above the nose if you have significant swelling in your lower leg. (A wedge pillow is easiest.) -Ice your incision as needed for pain/inflammation/swelling. Protect your skin with a folded pillowcase. Follow-up: -Follow-up with your surgeon or PA in the office in 10-14 days after surgery. -Follow-up with your surgeon 6 weeks postoperatively. Call the office if you have chest pain, shortness of breath, significant swelling that will not resolve with elevating, fever over 101?, significantly worsening pain. [facility]: [phone] You have been discharged with medications. These have already been sent to your pharmacy. Pain include pain medications: Oxycodone take 5 mg orally every 4 hours as needed for pain. If your pain is more severe you may take up to 2 or a maximum 3 pills (15 mg) every 4 hours for pain. Take the smallest dose necessary. Narcotic medication can make you feel constipated. You can get zteh-vxq-cvmdour stool softener such as docusate sodium-Colace at a pharmacy to help with this. You also have prescriptions for ibuprofen 800 mg take this 3 times a day for least the 1st 10 days after surgery to help with pain control. And acetaminophen (Tylenol) take 500-1000 mg 3 times a day for pain control. You also have a prescription for Zofran (ondansetron) this is a strong anti nausea medication that can be taken up to every 8 hours as needed for nausea Additionally will take a baby aspirin 81 mg twice a day (morning and night) to help prevent blood clots If you have been discharged with ketorolac (toradol) this is a strong anti- inflammatory, do not take ibuprofen/meloxicam/mortin or other NSAIDS while on ketorolac. Once your ketorolac prescription is finished, you may restart taking other NSAIDs again. narcotic pain medication, tylenol and aspirin are fine to continue while on ketorolac. Skin/Wound/Dressing Care Report to your healthcare provider any signs of infection, such as:: chills, fever, night sweats, increased pain, unusual drainage and unusual redness Visit Report/Discharge Packet Instructions: DI for Knee Replacement, DI for Prescription Opioid Use Stand Alone Forms: Patient Portal/API, Surgery Discharge Discharge Data Primary Care Provider: Minerva Hearn Attending Provider: Suzan Rousseau VTE Deep Vein Thrombosis/Pulmonary Embolism Present on Admission: No
[2023-10-01] MEDS: ASPIRIN EC 81 MG TABLET PO (08:59)
[2023-10-01] MEDS: atenoloL 50 MG TABLET PO (08:59)
[2023-10-01] MEDS: CHOLECALCIFEROL (VITAMIN D3) 1,000 UNIT TABLET 1000 UNIT PO (08:59)
[2023-10-01] MEDS: AMLODIPINE 5 MG TABLET 10 MG PO (08:59)
[2023-10-01] MEDS: lisinopriL 20 MG TABLET 40 MG PO (09:00)
[2023-10-01] MEDS: DOCUSATE 100 MG CAPSULE PO (09:00)
[2023-10-01] MEDS: OXYBUTYNIN 5 MG ER TAB 10 MG PO (09:05)
--- NOTE | 2023-10-01 09:32 | OT.IP.EVAL ---
Current Diagnoses Unilateral primary osteoarthritis, right knee (09/30/23) Surgery Performed Operation Date: 09/30/23 10:45 Actual Procedures p Total Knee Arthroplasty - Robot(Right) - Suzan Rousseau MD Past Medical History (Last Updated 09/22/23 @ 10:22 by Samantha Thapa RN) Arthritis Asthma (~194) Easy bruisability HLD (hyperlipidemia) Hypertension (~2001) Hypoxia Pneumonia Rosacea (~1999) Seasonal allergies (~194) Surgical History (Last Updated 09/22/23 @ 10:26 by Samantha Thapa RN) Anesthesia History of section (~1960) History of section (~1965) History of gynecologic surgery Hx of bilateral cataract extraction Hx of colonoscopy (08/27/18) Hx of tonsillectomy Occupational Therapy Inpatient Evaluation/Re-Eval M1 PT/OT-IP Prior Functional Status Start: 10/01/23 09:42 Freq: NEEDED Status: Active Protocol: Document 10/01/23 09:42 [facility] (Rec: 10/01/23 10:00 [facility] [id number]) Medical Review Prior Functional Status Communication Independent Mobility and Gait Independent with no device be limited in distance. Activities of Daily Living and IADL's Independent Social History Household Members spouse Living Arrangements House Number of Floors (Floors) One Floor Number of Stairs To Enter/Railing? 1 step plus 3 steps with bilateral wide rails and then another step to get into the house. Home Environment Standard Height Toilet,Walk in Shower Home Equipment Front Wheel Walker,Straight Cane,Shower Seat with Backrest ,Hand Held Shower,Circuits Engineer M2 OT-IP Current Condition Start: 10/01/23 09:42 Freq: Status: Active Protocol: Document 10/01/23 09:42 [facility] (Rec: 10/01/23 10:00 [facility] [id number]) Occupational Therapy Current Condition Current Condition Evaluation Date 10/01/23 Treatment Diagnosis S/P R TKA Diagnosis Onset Date 09/30/23 Weight Bearing Status Weight Bearing Status Weight Bear as Tolerated M3 OT- IP Subjective and Pain Start: 10/01/23 09:42 Freq: Status: Active Protocol: Document 10/01/23 09:42 [facility] (Rec: 10/01/23 10:00 [facility] [id number]) OT- Subjective Occupational Therapy Visit Type Type Initial Evaluation Visit Start Time 09:00 Visit Stop Time 09:32 Occupational Therapy Visit Comments Patient Comments Pt wanting to use the bathroom and get dressed. Patient/Caregiver Goals TO go home. OT Pain Assessment Pain When Pain Assessed During Mobility Pain Present Pain Present Pain Reported Location right knee Intensity 2 Scale Used Numeric (0 - 10) M4 OT- IP ADL's Start: 10/01/23 09:42 Freq: Status: Active Protocol: Document 10/01/23 09:42 [facility] (Rec: 10/01/23 10:00 [facility] [id number]) OT [id number]-Sccxmqh General Evaluation Self-Feeding Ability Independent OT ADL-Grooming General Evaluation Grooming Ability Independent Comments OT Grooming Comments set-up assist OT ADL-Oral Care General Eval Oral Care Ability Independent Comments Oral Care Comments Set-up to help open the packaging. OT ADL-Dressing General Eval Upper Body Dressing Ability Independent Lower Body Dressing Ability Moderate Assistance Comments OT Dressing Comments Assist to help put her shoes on and tie them. OT ADL-Toileting General Evaluation Toileting Ability Standby Assistance OT ADL-Bathing Comments OT Bathing Comments Went over care of bandage for showering needs. M5 OT- IP IADL's Start: 10/01/23 09:42 Freq: Status: Active Protocol: Document 10/01/23 09:42 [facility] (Rec: 10/01/23 10:00 [facility] [id number]) OT-Instrumental Activities of Daily Living Deficits IADL Deficits Identified Deficits Home Safety Awareness Awareness of Need for Assistance at Home Good Awareness Ability to Problem Solve Emergency Able to Problem Solve Situations Medication Management Medication Management No Deficits Identified Meal Preparation Meal Preparation Caregiver Provides Assist Brake Engineer Brake Engineer Caregiver Provides Assist M6 OT- IP Functional Cognition Start: 10/01/23 09:42 Freq: Status: Active Protocol: Document 10/01/23 09:42 [facility] (Rec: 10/01/23 10:00 [facility] [id number]) Cognitive Factors Limiting Selfcare Function Cognitive Ability Level of Alertness Alert Patient Orientation Name,Age,Birthday,Month,Date, Year,Day of Week,Place, Situation Attention Span Ability Capable of Focused Attention, Capable of Sustained Attention Ability to Follow Commands Able to Follow Multi-Step Commands Cognitive Comments Cognitive Assessment Comments Pt intact. Pt needing initial safety cue to keep the FWW in front of her and push up and reach back with her arms when coming to stand and sitting. OT- Vision and Hearing OT- Hearing Assessment OT- Hearing Assessment WFL OT- Vision Assessment Visual Acuity Glasses All The Time Occular Pursuits WFL Visual Convergence WFL M7 OT- IP Mobility and Balance Start: 10/01/23 09:42 Freq: Status: Active Protocol: Document 10/01/23 09:42 [facility] (Rec: 10/01/23 10:00 [facility] [id number]) OT-Transfer Assessment Sit to and From Stand Sit to and from Stand Standby Assistance,Contact Guard Assistance Transfers Transfer Ability Contact Guard Assistance Technique Transfer Destination Chair,Toilet Transfer Technique Stand Step Pivot Devices Transfer Assistive Devices Gait Belt,Front Wheeled Walker Comments Mobility Comments CGA to stand to FWW and SBA afterwards to walk with the FWW. OT- Balance Assessment Sitting Balance and Reactions Static Sitting Balance Ability Normal Dynamic Sitting Balance Ability Good Standing Balance and Reactions Static Standing Balance Ability Good Dynamic Standing Balance Ability Fair M8 OT- IP Objective Assessments Start: 10/01/23 09:42 Freq: Status: Active Protocol: Document 10/01/23 09:42 [facility] (Rec: 10/01/23 10:00 [facility] [id number]) OT Gross Range of Motion Upper Extremity Range of Motion Assessment Within Functional Limits OT- Coordination Assessment Comments Coordination Comments Arthritic changes in the her hands. M9 OT- IP Assessment and Plan Start: 10/01/23 09:42 Freq: Status: Active Protocol: Document 10/01/23 09:42 [facility] (Rec: 10/01/23 10:00 [facility] [id number]) OT Summary Assessment and Plan Potential Rehabilitation Potential Excellent Analytic Complexity at Evaluation Low Summary OT Impairments Pain,Range of Motion,Strength, Balance,Functional Mobility, Dressing,Bathing,Toilet Transfers,Shower Transfers Progress Towards Goals Progressing Toward Goals Assessment Summary Pt low complexity and main barriers are pain, steps and arthur now need assist for her compression stocking from her . Pt to go home when medically stable and her and sons to assist. Pt to have outpt PT. Goals Dressing Goal Minimal Assistance Toileting Goal Independent Bathing Goal Standby Assistance Toilet Transfer Goal Independent Shower Transfer Goal Standby Assistance Days to Meet Goals 2 Frequency of Treatment Frequency Of Treatment Once a Day Treatment Plan OT Treatment Plan ADL Training,Functional Mobility,Patient/Family Education,Discharge Planning Discharge Recommendations OT Discharge Recommendations Home with Assistance, Outpatient PT Transportation Needs at Discharge Private Vehicle
--- NOTE | 2023-10-01 10:02 | PT.IIE ---
Current Diagnoses Unilateral primary osteoarthritis, right knee (09/30/23) Surgery Performed Operation Date: 09/30/23 10:45 Actual Procedures p Total Knee Arthroplasty - Robot(Right) - Suzan Rousseau MD Surgical History (Last Updated 09/22/23 @ 10:26 by Samantha Thapa, RN) Anesthesia History of section (~1960) History of section (~1965) History of gynecologic surgery Hx of bilateral cataract extraction Hx of colonoscopy (08/27/18) Hx of tonsillectomy Medical History (Last Updated 09/22/23 @ 10:22 by Samantha Thapa RN) Arthritis Asthma (~1944) Easy bruisability HLD (hyperlipidemia) Hypertension (~2001) Hypoxia Pneumonia Rosacea (~1999) Seasonal allergies (~1944) Physical Therapy Inpatient Evaluation/Re-Eval M1 PT/OT-IP Prior Functional Status Start: 10/01/23 08:10 Freq: NEEDED Status: Active Protocol: Document 10/01/23 09:05 [facility] (Rec: 10/01/23 10:02 [facility] [id number]) Medical Review Prior Functional Status Medical History Reviewed Yes Diet/Fluid Consistency Regular Communication WNLs Mobility and Gait I Activities of Daily Living and IADL's I Social History Household Members spouse Living Arrangements House Number of Floors (Floors) One Floor Number of Stairs To Enter/Railing? 3 steps with rails both sides to enter, final step may have right rail only Home Environment Standard Height Toilet,Walk in Shower Home Equipment Front Wheel Walker,Straight Cane,Shower Seat with Backrest ,Hand Held Shower,Clay Digger Employment Status Retired M1 PT/OT-IP Prior Functional Status Start: 10/01/23 09:42 Freq: NEEDED Status: Active Protocol: Document 10/01/23 09:42 [facility] (Rec: 10/01/23 10:00 [facility] [id number]) Medical Review Prior Functional Status Communication Independent Mobility and Gait Independent with no device be limited in distance. Activities of Daily Living and IADL's Independent Social History Household Members spouse Living Arrangements House Number of Floors (Floors) One Floor Number of Stairs To Enter/Railing? 1 step plus 3 steps with bilateral wide rails and then another step to get into the house. Home Environment Standard Height Toilet,Walk in Shower Home Equipment Front Wheel Walker,Straight Cane,Shower Seat with Backrest ,Hand Held Shower,Clay Digger M2 PT-IP Current Condition Start: 10/01/23 08:10 Freq: NEEDED Status: Active Protocol: Document 10/01/23 09:05 [facility] (Rec: 10/01/23 10:02 [facility] [id number]) Physical Therapy Current Condition Current Condition Evaluation Date 10/01/23 Treatment Diagnosis R TKA M3 PT-IP Subjective Start: 10/01/23 08:10 Freq: NEEDED Status: Active Protocol: Document 10/01/23 09:05 [facility] (Rec: 10/01/23 10:02 [facility] [id number]) Subjective Physical Therapy Visit Type Type Initial Evaluation Visit Start Time 09:05 Visit Stop Time 09:16 Number of PARKS RECREATION DIRECTOR Visits 0 Physical Therapy Visit Comments Patient Comments Pt asks to get up to the BR and she is ready to d/c home today Therapy Pain Assessment Pain When Pain Assessed At Rest Pain Present Pain Present Pain Reported Location right knee Intensity 2 Scale Used Numeric (0 - 10) Description Acute Pain Behaviors Guarding Pain Management Techniques Apply Cold,Distraction, Modification of Treatment,Re- positioning,Timing of Activity with Medications M4 PT-IP Mobility and Gait Start: 10/01/23 08:10 Freq: NEEDED Status: Active Protocol: Document 10/01/23 09:05 [facility] (Rec: 10/01/23 10:02 [facility] [id number]) PT-Bed Mobility Assessment Supine to Sit Supine to Sit Standby Assistance,1 Person Assistance Scooting Scooting to Edge of Bed Standby Assistance PT-Transfer Assessment Sit to and From Stand Sit to and from Stand Contact Guard Assistance,1 Person Assistance Equipment Transfer Assistive Device Gait Belt,Front Wheeled Walker Orthotic/Prosthetic Devices or Brace: No Transfers Transfer Destination Toilet Transfer Technique Ambulating Transfer Ability Level of Assist Contact Guard Assistance Comments Mobility Comments Right knee is edematous and has erythema and it does not bend much and pt has trace quad activitation with mobility Gait Assessment Gait Gait Assistance Required: Contact Guard Assist Distance (Feet) 20 Able to Maintain Weight Bearing Status Yes During Gait Assistive Devices Assistive Device Gait Belt,Front Wheeled Walker Orthotic/Prosthetic Devices or Brace: No Gait Deviations General Gait Pattern Antalgic,Decreased Stride Length,Decreased Feet Clearance,Step-to Gait Factors Limiting Gait Function Factors Limiting Gait Function Decreased Activity Tolerance, Decreased Strength,Limited Range of Motion,Pain,Poor Balance,Poor Safety Awareness Comments Gait Comments Pt with antalgic, step-to pattern with gait with RW this a.m. PT-Balance Assessment Sitting Balance and Reactions Static Sitting Balance Ability Good Dynamic Sitting Balance Ability Good Standing Balance and Reactions Static Standing Balance Ability Good Dynamic Standing Balance Ability Good Device Used RW M5 PT-IP Objective Assessments Start: 10/01/23 08:10 Freq: NEEDED Status: Active Protocol: Document 10/01/23 09:05 [facility] (Rec: 10/01/23 10:02 [id number]) Orientation Orientation/Cognition Level of Alertness Alert Orientation Name,Age,Birthday,Month,Date, Year,Day of Week,Place, Situation Language Function Ability No Deficits Noted Safety Awareness Understands Safety Issues Memory Description No Deficits Noted Gross Range of Motion Upper Extremity ROM Impairments Defer to OT Lower Extremity ROM Assessment Right Impaired Impairments Right knee ROM grossly 15-40 deg this a.m. Strength Lower Extremity Strength Assessment Right Impaired M6 PT-IP Treatment Start: 10/01/23 08:10 Freq: NEEDED Status: Active Protocol: Document 10/01/23 09:05 [facility] (Rec: 10/01/23 10:02 MB [id number]) Physical Therapy Treatment Exercises Knee ROM Measurement See above, briefly reviewed post-op booklet Education Education Provided Weight Bearing Status M7 PT-IP Assessment and Plan Start: 10/01/23 08:10 Freq: NEEDED Status: Active Protocol: Document 10/01/23 09:05 [facility] (Rec: 10/01/23 10:02 [id number]) PT Summary Assessment and Plan Potential Rehabilitation Potential Good Status of Condition at Evaluation Evolving Summary Impairments Pain,ROM,Strength,Balance,Bed Mobility,Transfers,Gait, Activity Tolerance Progress Towards Goals Progressing Toward Goals Assessment Summary Pt is an 83 y/o female who presents with 2/10 pain, right knee edema and erythema and decreased ROM post-op day 1 TKA. Pt mobilizes well in the bed and with transfers with CGA and she gait trains to the BR with RW and CGA. She will benefit from one more PT visit to review stair mobility. Recommend OPPT at d/c and frequent icing of right knee. Goals Bed Mobility Goal Independent Transfer Goal Independent,Front Wheeled Walker Gait Goal Independent,Front Wheel Walker Gait Distance 100 Other Goals Pt will ascend and descend 3 steps with rail and/or LRAD with no more than CGA to allow safe home entrance. Days to Meet Goals 2 Frequency of Treatment Frequency Of Treatment Twice a Day Treatment Plan Physical Therapy Treatment Plan Bed Mobility Training,Transfer Training,Gait Training, Therapeutic Exercise,Balance Retraining,Post Op Education, Discharge Planning,Hot or Cold Pack,Neuromuscular Re-ed, Coordination Retraining,Manual Therapy Weight Bearing Status Weight Bearing Status Weight Bear as Tolerated Recommendations To Nursing Amount of Assist Needed 1 Person Assist Discharge Recommendations PT Discharge Recommendations Home with 29/12 Assist Available,Outpatient PT Transportation Needs at Discharge Private Vehicle
--- NOTE | 2023-10-01 10:05 | PT.IPTN ---
Current Diagnoses Unilateral primary osteoarthritis, right knee (09/30/23) Surgery Performed Operation Date: 09/30/23 10:45 Actual Procedures p Total Knee Arthroplasty - Robot(Right) - Suzan Rousseau MD Physical Therapy Treatment Note M2 PT-IP Current Condition Start: 10/01/23 08:10 Freq: NEEDED Status: Active Protocol: Document 10/01/23 09:05 [facility] (Rec: 10/01/23 10:02 [facility] [id number]) Physical Therapy Current Condition Current Condition Evaluation Date 10/01/23 Treatment Diagnosis R TKA M3 PT-IP Subjective Start: 10/01/23 08:10 Freq: NEEDED Status: Active Protocol: Document 10/01/23 10:22 TS (Rec: 10/01/23 10:30 TS [id number]) Subjective Physical Therapy Visit Type Type Treatment Note Visit Start Time 10:05 Visit Stop Time 10:22 Notes Spouse present Number of BOILER OPERATOR Visits 1 Physical Therapy Visit Comments Patient Comments Pt found resting in chair, pt is agreeable to PT. Therapy Pain Assessment Pain When Pain Assessed During Mobility Pain Present Pain Present Pain Reported M4 PT-IP Mobility and Gait Start: 10/01/23 08:10 Freq: NEEDED Status: Active Protocol: Document 10/01/23 10:22 TS (Rec: 10/01/23 10:30 TS [id number]) PT-Transfer Assessment Sit to and From Stand Sit to and from Stand Standby Assistance Equipment Transfer Assistive Device Gait Belt,Front Wheeled Walker Orthotic/Prosthetic Devices or Brace: No Comments Mobility Comments Spouse donned gait belt prior to mobility. STS from chair SBA with BUE support pushign from arms of chair, pt has good standing balance. She ambulated ~80'SBA with FWW, reported increased pain and fatigue required w/c to stairs . She performed platform steps x2 with FWW CGA and steps x3 with single rail and CLINICAL INFORMATICS EDUCATOR CGA with cues for sequencing. She was brought back to room in w/ c, RN notified. Gait Assessment Gait Gait Assistance Required: Standby Assistance Distance (Feet) 80 Able to Maintain Weight Bearing Status Yes During Gait Assistive Devices Assistive Device Gait Belt,Front Wheeled Walker Orthotic/Prosthetic Devices or Brace: No Gait Deviations General Gait Pattern Antalgic,Decreased Stride Length,Decreased Feet Clearance,Step-to Gait Factors Limiting Gait Function Factors Limiting Gait Function Decreased Activity Tolerance, Decreased Strength,Limited Range of Motion,Pain,Poor Balance Stair Climbing Assessment Evaluation Level of Assist On Stairs Contact Guard Assistance,1 Person Assistance Devices Stair Climbing Assistive Devices Front Wheel Walker,Left Railing,Right Railing Technique/Endurance Stair Climbing Direction Ascend and Descend Stair Climbing Technique Step to Step Number of Steps Climbed 5 PT-Balance Assessment Sitting Balance and Reactions Static Sitting Balance Ability Normal Dynamic Sitting Balance Ability Good Standing Balance and Reactions Static Standing Balance Ability Good Dynamic Standing Balance Ability Fair Device Used RW M5 PT-IP Objective Assessments Start: 10/01/23 08:10 Freq: NEEDED Status: Active Protocol: Document 10/01/23 09:05 [facility] (Rec: 10/01/23 10:02 MB [id number]) Orientation Orientation/Cognition Level of Alertness Alert Orientation Name,Age,Birthday,Month,Date, Year,Day of Week,Place, Situation Language Function Ability No Deficits Noted Safety Awareness Understands Safety Issues Memory Description No Deficits Noted Gross Range of Motion Upper Extremity ROM Impairments Defer to OT Lower Extremity ROM Assessment Right Impaired Impairments Right knee ROM grossly 15-40 deg this a.m. Strength Lower Extremity Strength Assessment Right Impaired M6 PT-IP Treatment Start: 10/01/23 08:10 Freq: NEEDED Status: Active Protocol: Document 10/01/23 10:22 TS (Rec: 10/01/23 10:30 TS [id number]) Physical Therapy Treatment Education Education Provided Weight Bearing Status,Safety M7 PT-IP Assessment and Plan Start: 10/01/23 08:10 Freq: NEEDED Status: Active Protocol: Document 10/01/23 10:22 TS (Rec: 10/01/23 10:30 TS [id number]) PT Summary Assessment and Plan Potential Rehabilitation Potential Good Summary Impairments Pain,ROM,Strength,Balance,Bed Mobility,Transfers,Gait, Activity Tolerance Progress Towards Goals Progressing Toward Goals Assessment Summary Katie is making good progress with her mobility. She progressed her gait to ~80 'SBA with FWW, had some fatigue and required w/c to stairs. She performed steps x2 with FWW on platform step and x3 with single rail and CLINICAL INFORMATICS EDUCATOR CGA. She demonstrates good safety awareness and mobility techniques. PT is recommending pt return home with assist and outpatient PT. Goals Bed Mobility Goal Independent Transfer Goal Independent,Front Wheeled Walker Gait Goal Independent,Front Wheel Walker Gait Distance 100 Other Goals Pt will ascend and descend 3 steps with rail and/or LRAD with no more than CGA to allow safe home entrance. Days to Meet Goals 2 Frequency of Treatment Frequency Of Treatment Twice a Day Treatment Plan Physical Therapy Treatment Plan Bed Mobility Training,Transfer Training,Gait Training, Therapeutic Exercise,Balance Retraining,Post Op Education, Discharge Planning,Hot or Cold Pack,Neuromuscular Re-ed, Coordination Retraining,Manual Therapy Weight Bearing Status Weight Bearing Status Weight Bear as Tolerated Recommendations To Nursing Amount of Assist Needed 1 Person Assist Discharge Recommendations PT Discharge Recommendations Home with Assistance, Outpatient PT Transportation Needs at Discharge Private Vehicle
--- NOTE | 2023-10-01 10:25 | PC.NURSE ---
Assess- Patient is alert and oriented x4, she is going to be discharged from the hospital. Dressing to knee is cdi, patient is ambulating well and has been cleared by PT.
== END 2023-10-01 10:50 | disposition home or self-care (01) ==
LOC: OR 09:04 → AC 09:04
PROVIDERS: Family Provider Family Medicine; PCP Family Medicine; Referring Provider Orthopaedic Surgery Foot and Ankle Surgery; Visit Provider Orthopaedic Surgery Foot and Ankle Surgery
PROC: 0SRC0JZ Replacement of Right Knee Joint with Synthetic Substitute, Open Approach (ICD-10-PCS; CPT 27447; principal; 2023-09-30 10:45)
DX: M17.11 Unilateral primary osteoarthritis, right knee (principal); G89.18 Other acute postprocedural pain
CPT/HCPCS: 27447; 20985; 36415; 64450; 73560; 85014; 85018; 94760; 97161; 97165; 97530; 97535; C1776; C9290; J0171; J0690; J1100; J1170; J2704; J3010; J3410

== ENCOUNTER 2023-10-04 16:14 | Emergency (ER) | payer MEDICARE, OTHER, SELFPAY ==
[2023-09-30 16:14] VITALS: BMI 27.7
[2023-10-04 16:19] VITALS: BP 184/75; PULSE 67; RESP 16; TEMP 36.4; O2SAT 99; BMI 24.5
--- NOTE | 2023-10-04 16:35 | DI.US.S_ITS ---
PROCEDURE: US PERIPH VENOUS LOW EXTREM RT INDICATIONS: Post rt knee replacement with below knee swelling, deep red TECHNIQUE: Real-time imaging, as well as color and pulse Doppler interrogation, were performed of the lower extremity deep veins from the inguinal ligament to the popliteal fossa, with documentation of the visualized calf veins. COMPARISON: None. FINDINGS: The common femoral, femoral, popliteal, and the visualized calf veins are normally compressible, and free of intraluminal thrombus. Color and pulse Doppler demonstrate normal phasic intraluminal flow. There is normal augmentation response to distal compression maneuver. IMPRESSION: No findings of lower extremity deep venous thrombosis. Dictated by: Nils Brink M.D. on 10/04/2023 at 17:59 Approved by: Nils Brink M.D. on 10/04/2023 at 18:00
--- NOTE | 2023-10-04 19:52 | ED.SKABFB ---
HPI - Skin/Abscess/Foreign Bdy General Chief complaint: Skin/Abscess/Foreign Body Stated complaint: post knee replacement/dark red/bruised Time Seen by Provider: 10/04/23 17:39 Source: patient Mode of arrival: Ambulatory Limitations: no limitations History of Present Illness HPI narrative: 83-year-old female presents for evaluation right knee erythema. Patient underwent total knee replacement on 09/30/[address] Rousseau. Patient states that she has noticed that her right lower extremity is red and swollen. She called the on-call physician, who shared her that this was normal, however her daughter that she says works in healthcare told her to come to the ER for evaluation. Patient denies pain, states that she has otherwise been healing well post procedure. She takes a daily baby aspirin, denies use of other blood thinners. She states that she does have a history of easy bruising Related Data Home Medications Medication Instructions Recorded Confirmed epinephrine 0.15 mg/0.15 mL 0.15 ml SUBCUT PRN PRN Allergic 01/22/18 09/22/23 auto-injector (for 33 to 66 lb reaction to seafood patients) cholecalciferol (vitamin D3) 25 1,000 unit PO DAILY 08/27/18 09/30/23 mcg (1,000 unit) capsule (Vitamin D3) metronidazole 0.75 % topical cream 1 applic topical BID 07/24/22 09/22/23 fluticasone fur. 200 mcg-umeclid 1 inh inhalation DAILY 09/22/23 09/30/23 62.5 mcg-vilant 25 mcg inhalat.powder (Trelegy Ellipta) naproxen sodium 220 mg capsule 220 mg PO Q8H PRN Pain 09/22/23 09/30/23 (Aleve) Previous Rx's Medication Instructions Recorded amlodipine 10 mg tablet See Rx Instructions .Route 11/12/22 .COMPLEX #90 tabs lisinopril 40 mg tablet See Rx Instructions .Route 11/12/22 .COMPLEX #90 tabs atorvastatin 10 mg tablet See Rx Instructions .Route 07/24/23 .COMPLEX #90 tabs tolterodine 4 mg capsule,extended 4 mg PO DAILY #90 caps 08/17/23 release 24 hr atenolol 50 mg tablet 50 mg PO DAILY #90 tabs 08/25/23 aspirin 81 mg tablet,delayed 81 mg PO BID #90 tabs 10/01/23 release Allergies Allergy/AdvReac Type Severity Reaction Status Date / Time bee venom protein (honey bee) Allergy Severe Swelling Verified 10/04/23 16:27 at the site hornet venom Allergy Severe Swelling Verified 10/04/23 16:27 at the site salmon oil Allergy Severe Anaphylaxis Verified 10/04/23 16:28 shellfish derived Allergy Severe Anaphylaxis Verified 10/04/23 16:27 Review of Systems Review of Systems Narrative: See HPI Patient History Medical History Easy bruisability Arthritis HLD (hyperlipidemia) Hypoxia Pneumonia Rosacea (~1999) Asthma (~1944) Seasonal allergies (~1944) Hypertension (~2001) Surgical History History of gynecologic surgery Hx of bilateral cataract extraction Hx of tonsillectomy Hx of colonoscopy (08/27/18) Anesthesia History of section (~1965) History of section (~1960) Family History Father No problems noted. Mother No problems noted. Grandfather No problems noted. Grandmother No problems noted. Social History marital status: number of children: 2 household members: spouse lives independently: Yes caregiver/support person: No housing: house Smoking Status: Never smoker second hand exposure: No alcohol intake: current substance use type: does not use Smoking Status: Never smoker alcohol intake frequency: 0-2 drinks per day Substance Use Type: does not use Exam Initial Vital Signs Initial Vital Signs: Vital Signs Temperature 97.6 F 10/04/23 16:19 Pulse Rate 67 10/04/23 16:19 Respiratory Rate 16 10/04/23 16:19 Blood Pressure 184/75 H 10/04/23 16:19 Pulse Oximetry 99 10/04/23 16:19 Oxygen Delivery Method Room Air 10/04/23 16:19 Const: Awake, alert, no acute distress, nontoxic appearing MSK: Surgical site with clean dry dressing, dependent bruising distal to R knee Skin: Warm, Dry, Surgical wound clean Neuro: AO x3, CN II-XII grossly intact, moves all extremities Course Orders Ordered: ED Orders 10/04/23 16:35 US perip venous low extrem rt Stat Vital Signs Vital signs: Vital Signs - 8 hr 10/04/23 19:53 Temperature 98.8 F Pulse Rate 70 Respiratory Rate 16 Blood Pressure 160/72 H Pulse Oximetry 98 Oxygen Delivery Method Room Air MDM - Skin/Abscess/Foreign Bdy Differential Diagnosis Differential diagnosis: Likely abscess of skin or subcutaneous tissue, viral exanthem and dermatophytosis Imaging Data US - DVT: Radiologist's Impression: PROCEDURE: US PERIP VENOUS LOW EXTREM RT INDICATIONS: Post rt knee replacement with below knee swelling, deep red TECHNIQUE: Real-time imaging, as well as color and pulse Doppler interrogation, were performed of the lower extremity deep veins from the inguinal ligament to the popliteal fossa, with documentation of the visualized calf veins. COMPARISON: None. FINDINGS: The common femoral, femoral, popliteal, and the visualized calf veins are normally compressible, and free of intraluminal thrombus. Color and pulse Doppler demonstrate normal phasic intraluminal flow. There is normal augmentation response to distal compression maneuver. IMPRESSION: No findings of lower extremity deep venous thrombosis. Dictated by: Nils Brnik M.D. on 10/04/2023 at 17:59 Approved by: Nils Brink M.D. on 10/04/2023 at 18:00 [facility] Narrative Medical decision making narrative: Well-appearing patient with postoperative bruising and swelling. Surgical wound is clean, dry, intact, skin is normal temperature to touch. This appears to be dependent bruising from the surgical site, likely compounded by patient's reported history of easy bruising. Vascular ultrasound negative for acute findings. This is likely postoperative swelling and should reside with elevation and time. Patient advised to keep her leg elevated above heart level and to follow up with her surgeon. Discharge Plan Departure Patient Disposition: Home Clinical Impression: Postoperative ecchymosis Instructions: DI for Hematoma (Bruise) Activity Restrictions/Additional Instructions: The swelling on your leg is normal for your postoperative course. The most important thing is to keep your leg elevated above heart level, as this will help the swelling go down. Prescriptions: No Action metronidazole 0.75 % cream 1 applic topical BID epinephrine 0.15 mg/0.15 mL auto-injector 0.15 ml SUBCUT PRN PRN (Reason: Allergic reaction to seafood) amlodipine 10 mg tablet See Rx Instructions .ROUTE .COMPLEX Qty: 90 3RF Dose Instruction: TAKE ONE TABLET BY MOUTH DAILY Rx Instructions: TAKE ONE TABLET BY MOUTH DAILY lisinopril 40 mg tablet See Rx Instructions .ROUTE .COMPLEX Qty: 90 3RF Dose Instruction: TAKE ONE TABLET BY MOUTH DAILY Rx Instructions: TAKE ONE TABLET BY MOUTH DAILY atorvastatin 10 mg tablet See Rx Instructions .ROUTE .COMPLEX Qty: 90 2RF Dose Instruction: TAKE ONE TABLET BY MOUTH DAILY Rx Instructions: TAKE ONE TABLET BY MOUTH DAILY tolterodine 4 mg capsule,extended release 24hr 4 mg PO DAILY Qty: 90 0RF atenolol 50 mg tablet 50 mg PO DAILY Qty: 90 0RF Trelegy Ellipta 200-62.5-25 mcg Blister With Device 1 inh INHALATION DAILY naproxen sodium [Aleve] 220 mg Capsule 220 mg PO Q8H PRN (Reason: Pain) aspirin 81 mg Tablet,Delayed Release (Dr/Ec) 81 mg PO BID Qty: 90 0RF cholecalciferol (vitamin D3) [Vitamin D3] 1,000 unit Capsule 1,000 unit PO DAILY Referrals: Minerva Hearn MD [Primary Care Provider] - Stand Alone Forms: Patient Portal/API
[2023-10-04 19:53] VITALS: BP 160/72; PULSE 70; RESP 16; TEMP 37.1; O2SAT 98
--- NOTE | 2023-10-04 20:13 | PC.NURSE ---
pt recently had knee surgery worried about incision, incision is intact with dried blood noted at incision but no drainage, area is not hot to the touch,
== END 2023-10-04 20:15 | disposition home or self-care (01) ==
PROVIDERS: Emergency Provider Emergency Medicine; Family Provider Family Medicine; PCP Family Medicine
DX: R58 Hemorrhage, not elsewhere classified (principal)
CPT/HCPCS: 93971; 99281; 99282

== ENCOUNTER → 2024-01-04 | Outpatient (CLI) | payer MEDICARE, OTHER, SELFPAY ==
[2023-09-30 16:14] VITALS: BMI 27.7
--- NOTE | 2024-01-04 08:04 | DI.MG.S_ITS ---
Patient Name: ELIZABETH CHAPPELL date: 1940 Sex: F Attending Physician: Nadiya Indications: Date: 01/04/2024 12:45 At the request of: KALINA DAS Procedure: MM screening mammo BI BILATERAL DIGITAL SCREENING MAMMOGRAM 3D/2D WITH CAD: 01/04/2024 CLINICAL: Routine screening. Family history of breast cancer. Comparison is made to exams dated: 12/29/2022 mammogram, 12/28/2021 mammogram, and 10/10/2020 mammogram - [facility]. Both breasts are heterogeneously dense, which may obscure small masses (category c / 51-75% glandular tissue). Current study was also evaluated with a Computer Aided Detection (CAD) system. No significant masses, calcifications, or other findings are seen in either breast. There has been no significant interval change. IMPRESSION: NEGATIVE There is no mammographic evidence of malignancy. A 1 year screening mammogram is recommended. Based on the Tyrer Cuzick model (a risk assessment model) the patient's lifetime risk is 1.6% and her 10 year risk is 0.0%. According to the ACR, ACS, and NCCN guidelines, an annual breast MRI exam along with mammogram is recommended if the patient's lifetime risk is 20% or greater. This exam was interpreted at Station ID: [id number]. Continued Report - Page 2 of 2 Patient Name: ELIZABETH CHAPPELL date: 1940 Sex: F Attending Physician: Nadiya Indications: Date: 01/04/2024 12:45 At the request of: KALINA DAS Procedure: MM screening mammo BI NOTE: For mammograms, a report in lay terms will be sent to the patient. Approximately 15% of breast malignancies will not be visualized mammographically. In the management of a palpable breast mass, a negative mammogram must not discourage biopsy of a clinically suspicious lesion. Electronically Signed By: Jeff pennington/linda:01/04/2024 12:45:22 letter sent: Normal Exam ACR BI-RADS Category 1: Negative [id number]
== END ==
PROVIDERS: Family Provider Family Medicine; PCP Family Medicine; Referring Provider Family Medicine; Visit Provider Family Medicine
DX: Z12.31 Encounter for screening mammogram for malignant neoplasm of breast (principal); Z80.3 Family history of malignant neoplasm of breast; R92.333 Mammographic heterogeneous density, bilateral breasts
CPT/HCPCS: 77063; 77067

== ENCOUNTER → 2024-09-01 16:29 | Outpatient (CLI) | payer MEDICARE, OTHER, SELFPAY ==
[2023-09-30 16:14] VITALS: BMI 27.7
--- NOTE | 2024-09-01 16:32 | DI.RAD.S_ITS ---
PROCEDURE: XR KNEE LT 3V INDICATIONS: Ground level fall knee pain TECHNIQUE: 3 views of the knee were acquired. COMPARISON: [facility], CR, XR KNEE RT 1TO2V, 09/30/2023, 14:57. [facility], CR, XR KNEE RT 3V, 05/04/2023, 11:31. FINDINGS AND IMPRESSION: Oxas-jy-efpgwudp degenerative changes, with joint space loss at the patellofemoral compartment most significant. Patellar enthesopathy is present. No acute displaced fracture or dislocation. Mild joint effusion and prepatellar swelling. If there is high concern for further derangement, consider MRI evaluation. Dictated by: Jeff Hunter M.D. on 09/01/2024 at 18:39 Approved by: Jeff Hunter M.D. on 09/01/2024 at 18:41
--- NOTE | 2024-09-01 16:32 | DI.RAD.S_ITS ---
PROCEDURE: XR ANKLE LT MIN 3V INDICATIONS: Ground level fall knee pain TECHNIQUE: 3 views of the ankle were acquired. COMPARISON: None. FINDINGS AND IMPRESSION: Moderate tibiotalar degenerative changes. Mild subtalar and midfoot degenerative changes also seen. Mild calcaneal enthesopathy. No acute displaced fracture or dislocation. Diffuse soft tissue swelling. If there is high concern for occult injury, consider repeat radiography or cross-sectional imaging. Dictated by: Jeff Hunter M.D. on 09/01/2024 at 18:38 Approved by: Jeff Hunter M.D. on 09/01/2024 at 18:39
--- NOTE | 2024-09-01 17:29 | DI.RAD.S_ITS ---
PROCEDURE: XR FOOT LT MIN 3V INDICATIONS: Ground level fall TECHNIQUE: 3 views of the foot were acquired. COMPARISON: None. FINDINGS AND IMPRESSION: Mild scattered degenerative changes including the 1st MTP. No definite displaced fracture or dislocation. Soft tissue swelling is present. If there is high concern for occult injury, consider repeat radiography or cross-sectional imaging. Dictated by: Jeff Hunter M.D. on 09/01/2024 at 18:41 Approved by: Jeff Hunter M.D. on 09/01/2024 at 18:42
== END ==
PROVIDERS: Family Provider Family Medicine; PCP Family Medicine; Referring Provider Family Medicine; Visit Provider Family Medicine
DX: S93.409A Sprain of unspecified ligament of unspecified ankle, initial encounter (principal); W18.30XA Fall on same level, unspecified, initial encounter; M25.562 Pain in left knee; M79.89 Other specified soft tissue disorders
CPT/HCPCS: 73562; 73610; 73630

== ENCOUNTER → 2024-12-26 15:37 | Outpatient (CLI) | payer MEDICARE, OTHER, SELFPAY ==
[2024-12-13 13:38] VITALS: BMI 27.7
[2024-12-26 16:53] LABS: Hemoglobin A1C% w Est Avg Glu 5.3 % (4.0-6.0)
[2024-12-26 17:13] LABS: Alanine Aminotransferase 14 IU/L (<35); Albumin 4.3 g/dL (3.5-5.0); Albumin Globulin Ratio 1.8 (1.0-2.8); Alkaline Phosphatase 80 U/L (38-126); Blood Urea Nitrogen 19 mg/dL (7-17); Calcium 9.9 mg/dL (8.4-10.2); Carbon Dioxide 25 mmol/L (22-32); Chloride 103 mmol/L (98-107); Cholesterol 205 mg/dL (140-199); Estimated Glomerular Filt Rate > 60 mL/min (>60); Globulin 2.4 g/dL (1.7-4.1); Glucose 103 mg/dL (70-99); HDL Cholesterol 77 mg/dL (40-60); HEMOLYSIS 26 (0-50); Potassium 4.7 mmol/L (3.4-5.1); Sodium 136 mmol/L (137-145); Total Protein 6.7 g/dL (6.3-8.2); Triglycerides 126 mg/dL (35-150)
[2024-12-26 17:24] LABS: Microalbumi Creatinin Ratio Ur 9.0 ug/mg CR (<30)
== END ==
LOC: LAB 15:38
PROVIDERS: Family Provider Family Medicine; PCP Family Medicine; Referring Provider Family Medicine; Visit Provider Family Medicine
DX: I10 Essential (primary) hypertension (principal); E78.5 Hyperlipidemia, unspecified; Z79.899 Other long term (current) drug therapy
CPT/HCPCS: 36415; 80053; 80061; 82043; 82570; 83036

== ENCOUNTER → 2025-03-14 13:49 | Outpatient (CLI) | payer MEDICARE, OTHER, SELFPAY ==
[2024-12-13 13:38] VITALS: BMI 27.7
--- NOTE | 2025-03-14 13:50 | DI.RAD.S_ITS ---
PROCEDURE: XR DEXA AXIAL SKELETON INDICATIONS: screening COMPARISON: [facility], , XR DEXA AXIAL SKELETON, 05/25/2018, 14:04. FINDINGS: Lumbar Spine: Bone mineral density is 0.713 g/cm2, T score -3.0, previously - 2.3. Left Femoral Neck: Bone mineral density is 0.526 g/cm2, T score -2.9. Left Hip: Bone mineral density 0.725 g/cm2, T score -1.9, -0.6. Fracture Risk Calculation (when applicable): 10-year fracture risk of a major osteoporotic fracture 22 percent and of a hip fracture 8.7 percent. (T score greater or equal to -1.0 to: NORMAL) (T score from -1.1 to -2.4: OSTEOPENIA) (T score less than or equal to -2.5: OSTEOPOROSIS) IMPRESSION: Osteoporosis Follow-up guidelines as follows: Osteoporosis: Consider a repeat DEXA and Vertebral Fracture Assessment (VFA) exam in 2 years or sooner if medically necessary, to reassess this patient's status. Osteopenia: Consider a repeat DEXA in 2-3 years to reassess this patient's status, or if there is a new clinical indication. Normal: Consider a repeat DEXA in 5 years or sooner, or if there is a new clinical indication. All treatment decisions require clinical judgment and consideration of individual patient factors, including patient preferences, comorbidities, previous drug use, risk factors not captured in the FRAX model (e.g., frailty, falls, vitamin D deficiency, increased bone turnover, interval significant decline in bone density ) and possible under- or over-estimation of fracture risk by FRAX. In addition, the NOF Guide recommends that FDA-approved medical therapies be considered in postmenopausal women and men age >= 50 years with a: * Hip or vertebral (clinical or morphometric) fracture * T-score of <=-2.5 at the spine or hip * Ten-year fracture probability by FRAX of >= 3% for hip fracture or >=20% for major osteoporotic fracture. Approved by: Elkin Johnson M.D. on 03/15/2025 at 12:09
--- NOTE | 2025-03-14 13:52 | DI.MG.S_ITS ---
MM screening mammo BI: 03/14/2025. BI-RADS: 1 CLINICAL: 84-year old female for bilateral screening mammogram. Tyrer-Cuzick lifetime risk of 0.7%. Current reported family history of breast cancer: mother. PRIOR EXAMS: 01/04/2024, 12/29/2022, 12/28/2021, 10/10/2020, 07/02/2019, 05/15/2018. MAMMOGRAPHY TECHNIQUE: 2D and 3D (tomosynthesis) digital mammographic views obtained, with additional images as needed for full coverage. Current study was also evaluated with a Computer Aided Detection (CAD) system. DENSITY C. The breasts are heterogeneously dense, which may obscure small masses. MAMMOGRAPHY FINDINGS Bilateral: No suspicious mass, asymmetry, microcalcification, or other abnormality seen. IMPRESSION: * No evidence of malignancy. RECOMMENDATIONS Bilateral * Annual screening mammography. OVERALL ASSESSMENT CATEGORY BI-RADS-1: Negative. The [employer] recommends annual screening mammography beginning at age 40 for women with average risk of breast cancer. ELECTRONICALLY SIGNED: Monie Ravi M.D. on 03/15/2025 at 09:30:33 AM PT Interpreting Station ID: [id number]
== END ==
PROVIDERS: Family Provider Family Medicine; PCP Family Medicine; Referring Provider Family Medicine; Visit Provider Family Medicine
DX: Z12.31 Encounter for screening mammogram for malignant neoplasm of breast (principal); Z80.3 Family history of malignant neoplasm of breast; R92.333 Mammographic heterogeneous density, bilateral breasts; M81.0 Age-related osteoporosis without current pathological fracture
CPT/HCPCS: 77063; 77067; 77080

== ENCOUNTER → 2025-05-09 08:18 | Outpatient (CLI) | payer MEDICARE, OTHER, SELFPAY ==
[2024-12-13 13:38] VITALS: BMI 27.7
[2025-05-09 10:35] LABS: Alanine Aminotransferase 16 IU/L (<35); Albumin 4.6 g/dL (3.5-5.0); Albumin Globulin Ratio 1.6 (1.0-2.8); Alkaline Phosphatase 98 U/L (38-126); Blood Urea Nitrogen 13 mg/dL (7-17); Calcium 9.9 mg/dL (8.4-10.2); Carbon Dioxide 23 mmol/L (22-32); Chloride 102 mmol/L (98-107); Estimated Glomerular Filt Rate > 60 mL/min (>60); Globulin 2.8 g/dL (1.7-4.1); Glucose 88 mg/dL (70-99); HEMOLYSIS 30 (0-50); Potassium 4.4 mmol/L (3.4-5.1); Sodium 137 mmol/L (137-145); Total Protein 7.4 g/dL (6.3-8.2)
== END ==
PROVIDERS: Family Provider Family Medicine; PCP Family Medicine; Referring Provider Family Medicine; Visit Provider Family Medicine
DX: M81.0 Age-related osteoporosis without current pathological fracture (principal)
CPT/HCPCS: 36415; 80053